=== PATIENT | female | born 1955 | race Caucasian/White ===

== ENCOUNTER → 2017-06-29 10:51 | Outpatient (CLI) | payer OTHER, BC, SELFPAY ==
[2017-06-25 14:36] VITALS: BP 138/81; BMI 32.0
[2017-06-29 11:12] LABS: Absolute Lymphocyte Count 1.29 X10^3/ul (0.83-4.51); Absolute Neutrophil Count 2.5 X10^3/uL (2.0-7.7); Basophil# 0.01 X10^3/uL; Basophil% 0.2 % (0-1); Eosinophils% 2.3 % (0-5); Hematocrit 39.3 % (37-47); Hemoglobin 13.4 g/dl (12.0-15.0); Lymphocyte # 1.29 X10^3/ul (4.0); Lymphocyte % 29.3 % (19-41); Mean Corp Hgb Conc 34.1 g/gl (32-36); Mean Corpuscular Hgb 28.7 pg (27.0-32.0); Mean Corpuscular Volume 84.2 fL (81-99); Mean Platelet Vol. 12.5 fl (6.2-12.0); Monocyte# 0.52 X10^3/uL; Monocyte% 11.8 % (0-10); Neutrophil # 2.48 X10^3/uL (2.7-7.7); Neutrophil % 56.2 % (47-70); POSITIVE COUNT NO; POSITIVE DIFFERENTIAL NO; POSITIVE MORPHOLOGY NO; Platelet Count 79 K/mm3 (150-450); RBC Distribution Width CV 13.3 % (11.6-14.6); RBC Distribution Width SD 40.7 fl (35.1-43.9); Red Blood Count 4.67 M/mm3 (4.2-5.4); White Blood Count 4.4 K/mm3 (4.4-11.0)
[2017-06-29 11:31] LABS: AST(SGOT) 34 U/L (15-37); Alanine Aminotransfer ALT/SGPT 61 U/L (13-56); Albumin, Serum 3.9 g/dL (3.2-5.0); Alkaline Phosphatase 74 U/L (45-117); Anion Gap 10 (5-15); BUN 13 mg/dL (7-18); BUN/Creat Ratio 12.5 RATIO (10-20); Calcium,Total 8.9 mg/dL (8.5-10.1); Chloride 106 mmol/L (98-107); Creatinine, Serum 1.04 mg/dL (0.55-1.02); EST Glomerular Filtration Rate 57 mL/min (>60); Est Glom Filt Rate - Afr Amer 69 mL/min (>60); Globulin 3.9 g/dL (2.2-4.2); Glucose 101 mg/dL (74-106); Protein, Total 7.8 g/dL (6.4-8.2); Sodium Level 141 mmol/L (136-145)
== END ==
PROVIDERS: Family Provider Family Medicine; PCP Family Medicine; Visit Provider Internal Medicine Rheumatology
DX: L40.59 Other psoriatic arthropathy (principal); Z79.899 Other long term (current) drug therapy; L40.8 Other psoriasis; M15.9 Polyosteoarthritis, unspecified; K21.0 Gastro-esophageal reflux disease with esophagitis; K76.0 Fatty (change of) liver, not elsewhere classified; I10 Essential (primary) hypertension; H34.231 Retinal artery branch occlusion, right eye; H43.812 Vitreous degeneration, left eye
CPT/HCPCS: 36415; 80053; 85025

== ENCOUNTER → 2017-07-04 15:00 | Outpatient (CLI) | payer OTHER, BC, SELFPAY ==
[2017-06-25 14:36] VITALS: BP 138/81; BMI 32.0
--- NOTE | 2017-07-04 15:00 | MASS_PTH ---
PATIENT: MEENU YOUNG LOC: [facility] U#:[id number] AGE/SX: 69/F ROOM: RE07/04/[address]: Dr. Darren Snider MD : 1955 BED: DIS: SPEC #: [id number] RECD: 07/04/17 19:24 STATUS: YANIQUE CARLOTA #: [id number] JERRY: 07/04/17 15:[address]: Darren Snider DEPT: SURGICAL PATHOLOGY RECD BY: Jake Ceballos ENTERED: 07/05/17 12:03 SP TYPE: Mass OTHR DR: Dr. Efe Moore MD Tissues: Left axillary region Procedures: Surgery Specimen Level IV HEADER OPERATION: Excision left axillary mass PRE-OP DIAGNOSIS: Left axillary mass TISSUE SUBMITTED: Left axillary tissue MICROSCOPIC DIAGNOSIS Left axillary mass, biopsy: Mature adipose tissue with early fat necrosis. AM:esther 07/08/17 COMMENT The lesion may represent a lipoma. Clinical correlation is suggested. MICROSCOPIC DESCRIPTION Slides are reviewed. GROSS DESCRIPTION Received in fixative is one container labeled with the patient's name and designated left axillary mass. The specimen consists of an ovoid fragment of yellow fatty tissue measuring 4 x 3 x 1.5 cm. Sections reveal homogenous yellow cut surfaces without cyst formation, necrosis or myxoid change. Final Tester sections are submitted in one cassette. / AM:esther 07/05/17 TC:1 CPT: 26339
== END ==
PROVIDERS: Family Provider Family Medicine; PCP Family Medicine; Visit Provider Surgery
DX: R22.2 Localized swelling, mass and lump, trunk (principal)
CPT/HCPCS: 88305

== ENCOUNTER → 2017-08-12 16:19 | Outpatient (CLI) | payer OTHER, BC, SELFPAY ==
--- NOTE | 2017-08-12 16:25 | HPBI_ITS ---
MAMMOGRAPHY - BILATERAL SCREENING REASON FOR EXAM: Female, 61 years old. Routine annual screening examination. PERTINENT HISTORY: Non-contributory. TECHNIQUE: Digital bilateral breast armand (3D mammographic acquisition) in the CC and MLO projections. 2-D mediolateral oblique (MLO) and craniocaudad (CC) views of both breasts were obtained. CAD: Full Field Digital Mammography with Computer Added Detection was performed. COMPARISON: Comparison is made with prior examination dated December 17, 2007. FINDINGS: Breast Composition: There are scattered areas of fibroglandular density. There are no dominant masses or suspicious calcifications. No other significant abnormalities are identified. There has been no significant change since the prior study. HPBI/SCREENING MAMM (CAD), BILAT IMPRESSION: Stable bilateral screening mammogram. Yearly follow-up mammogram recommended. (A) ASSESSMENT CATEGORY: BIRADS Category 1: Negative. A letter regarding these results will be sent to the patient by the facility within 30 days. Approximately 10% of breast cancers are not detected by mammography. A normal mammogram should not delay biopsy of a clinically suspicious abnormality. [id number] Electronically Signed: Dago Solis MD at 8:16 EDT Tel [phone], Service support ,
== END ==
PROVIDERS: Family Provider Family Medicine; PCP Family Medicine; Visit Provider Surgery
DX: Z12.31 Encounter for screening mammogram for malignant neoplasm of breast (principal)
CPT/HCPCS: 77063; 77067

== ENCOUNTER → 2017-10-26 07:44 | Outpatient (CLI) | payer OTHER, BC, SELFPAY ==
[2017-10-26 08:28] LABS: Absolute Lymphocyte Count 1.24 X10^3/ul (0.83-4.51); Absolute Neutrophil Count 2.2 X10^3/uL (2.0-7.7); Basophil# 0.01 X10^3/uL; Basophil% 0.3 % (0-1); Eosinophil# 0.12 X10^3/uL; Hemoglobin 13.4 g/dl (12.0-15.0); Lymphocyte # 1.24 X10^3/ul (4.0); Mean Corp Hgb Conc 33.5 g/gl (32-36); Mean Corpuscular Volume 83.5 fL (81-99); Mean Platelet Vol. 12.5 fl (6.2-12.0); Monocyte# 0.44 X10^3/uL; Neutrophil # 2.17 X10^3/uL (2.7-7.7); Neutrophil % 54.2 % (47-70); Platelet Count 84 K/mm3 (150-450); RBC Distribution Width CV 13.8 % (11.6-14.6); RBC Distribution Width SD 41.8 fl (35.1-43.9); Red Blood Count 4.79 M/mm3 (4.2-5.4)
[2017-10-26 08:31] LABS: POSITIVE COUNT NO; POSITIVE DIFFERENTIAL NO; POSITIVE MORPHOLOGY NO
[2017-10-26 08:59] LABS: AST(SGOT) 32 U/L (15-37); Alanine Aminotransfer ALT/SGPT 56 U/L (13-56); Albumin, Serum 3.9 g/dL (3.2-5.0); Alkaline Phosphatase 85 U/L (45-117); Anion Gap 7 (5-15); BUN 24 mg/dL (7-18); BUN/Creat Ratio 31.6 RATIO (10-20); Calcium,Total 8.6 mg/dL (8.5-10.1); Chloride 108 mmol/L (98-107); Cholesterol 171 mg/dL (200); Creatinine, Serum 0.76 mg/dL (0.55-1.02); EST Glomerular Filtration Rate 82 mL/min (>60); Est Glom Filt Rate - Afr Amer 100 mL/min (>60); Globulin 3.8 g/dL (2.2-4.2); Glucose 114 mg/dL (74-106); High Density Lipoprotein 41 mg/dL; Potassium 4.1 mmol/L (3.5-5.1); Protein, Total 7.7 g/dL (6.4-8.2); Sodium Level 138 mmol/L (136-145); T4 Total, Thyroxin 10.2 ug/dL (4.8-13.9); Thyroid Stim Hormone (TSH) 1.23 uIU/mL (0.358-3.74); Triglycerides 147 mg/dL; Very Low Density Lipoprotein 29 mg/dL (5-40)
== END ==
PROVIDERS: Family Provider Family Medicine; PCP Family Medicine; Visit Provider Family Medicine
DX: R53.83 Other fatigue (principal); E78.5 Hyperlipidemia, unspecified; L40.59 Other psoriatic arthropathy; Z79.899 Other long term (current) drug therapy; L40.8 Other psoriasis; M15.9 Polyosteoarthritis, unspecified; K21.0 Gastro-esophageal reflux disease with esophagitis; K76.0 Fatty (change of) liver, not elsewhere classified; I10 Essential (primary) hypertension; H34.231 Retinal artery branch occlusion, right eye; H43.812 Vitreous degeneration, left eye
CPT/HCPCS: 36415; 80053; 80061; 84436; 84443; 85025

== ENCOUNTER → 2017-12-27 08:04 | Outpatient (CLI) | payer OTHER, SELFPAY ==
[2017-12-27 09:10] LABS: Absolute Lymphocyte Count 1.05 X10^3/ul (0.83-4.51); Absolute Neutrophil Count 2.4 X10^3/uL (2.0-7.7); Basophil# 0.01 X10^3/uL; Basophil% 0.2 % (0-1); Eosinophil# 0.13 X10^3/uL; Eosinophils% 3.2 % (0-5); Lymphocyte # 1.05 X10^3/ul (4.0); Lymphocyte % 25.7 % (19-41); Mean Corp Hgb Conc 33.3 g/gl (32-36); Mean Corpuscular Hgb 28.8 pg (27.0-32.0); Mean Corpuscular Volume 86.3 fL (81-99); Mean Platelet Vol. 12.9 fl (6.2-12.0); Monocyte# 0.46 X10^3/uL; Monocyte% 11.2 % (0-10); Neutrophil # 2.43 X10^3/uL (2.7-7.7); Neutrophil % 59.5 % (47-70); Platelet Count 72 K/mm3 (150-450); RBC Distribution Width CV 14.1 % (11.6-14.6); Red Blood Count 4.52 M/mm3 (4.2-5.4); White Blood Count 4.1 K/mm3 (4.4-11.0)
[2017-12-27 09:11] LABS: POSITIVE COUNT NO; POSITIVE DIFFERENTIAL NO; POSITIVE MORPHOLOGY NO
[2017-12-27 09:41] LABS: ALB/GLOB Ratio 0.9 RATIO (0.9-2.4); AST(SGOT) 40 U/L (15-37); Alanine Aminotransfer ALT/SGPT 84 U/L (13-56); Albumin, Serum 3.7 g/dL (3.2-5.0); Alkaline Phosphatase 89 U/L (45-117); Anion Gap 9 (5-15); BUN 13 mg/dL (7-18); BUN/Creat Ratio 16.7 RATIO (10-20); Chloride 109 mmol/L (98-107); Creatinine, Serum 0.78 mg/dL (0.55-1.02); EST Glomerular Filtration Rate 80 mL/min (>60); Est Glom Filt Rate - Afr Amer 97 mL/min (>60); Globulin 3.9 g/dL (2.2-4.2); Glucose 136 mg/dL (74-106); Potassium 4.1 mmol/L (3.5-5.1); Protein, Total 7.6 g/dL (6.4-8.2); Sodium Level 143 mmol/L (136-145)
== END ==
PROVIDERS: Family Provider Family Medicine; PCP Family Medicine; Visit Provider Internal Medicine Rheumatology
DX: L40.59 Other psoriatic arthropathy (principal); Z79.899 Other long term (current) drug therapy; L40.8 Other psoriasis; K21.0 Gastro-esophageal reflux disease with esophagitis; K76.0 Fatty (change of) liver, not elsewhere classified; I10 Essential (primary) hypertension; H34.231 Retinal artery branch occlusion, right eye; H43.812 Vitreous degeneration, left eye
CPT/HCPCS: 36415; 80053; 85025

== ENCOUNTER → 2018-03-25 14:10 | Outpatient (CLI) | payer OTHER, SELFPAY ==
[2018-03-25 14:54] LABS: Absolute Lymphocyte Count 2.39 X10^3/ul (0.83-4.51); Basophil# 0.03 X10^3/uL; Basophil% 0.4 % (0-1); Eosinophil# 0.16 X10^3/uL; Eosinophils% 2.2 % (0-5); Hematocrit 40.9 % (37-47); Hemoglobin 13.9 g/dl (12.0-15.0); Lymphocyte # 2.39 X10^3/ul (4.0); Lymphocyte % 32.9 % (19-41); Mean Corpuscular Hgb 29.2 pg (27.0-32.0); Mean Corpuscular Volume 85.9 fL (81-99); Mean Platelet Vol. 12.7 fl (6.2-12.0); Monocyte# 0.67 X10^3/uL; Monocyte% 9.2 % (0-10); Platelet Count 107 K/mm3 (150-450); RBC Distribution Width CV 12.9 % (11.6-14.6); RBC Distribution Width SD 39.4 fl (35.1-43.9); Red Blood Count 4.76 M/mm3 (4.2-5.4); White Blood Count 7.3 K/mm3 (4.4-11.0)
[2018-03-25 14:57] LABS: POSITIVE COUNT NO; POSITIVE DIFFERENTIAL NO; POSITIVE MORPHOLOGY NO
[2018-03-25 15:18] LABS: ALB/GLOB Ratio 0.9 RATIO (0.9-2.4); AST(SGOT) 56 U/L (15-37); Alanine Aminotransfer ALT/SGPT 134 U/L (13-56); Albumin, Serum 3.8 g/dL (3.2-5.0); Alkaline Phosphatase 101 U/L (45-117); Anion Gap 7 (5-15); BUN 12 mg/dL (7-18); BUN/Creat Ratio 12.3 RATIO (10-20); Chloride 106 mmol/L (98-107); Creatinine, Serum 0.98 mg/dL (0.55-1.02); EST Glomerular Filtration Rate 61 mL/min (>60); Est Glom Filt Rate - Afr Amer 74 mL/min (>60); Globulin 4.1 g/dL (2.2-4.2); Glucose 127 mg/dL (74-106); Potassium 3.8 mmol/L (3.5-5.1); Protein, Total 7.9 g/dL (6.4-8.2); Sodium Level 138 mmol/L (136-145)
== END ==
PROVIDERS: Family Provider Family Medicine; PCP Family Medicine; Referring Provider Internal Medicine Rheumatology; Visit Provider Internal Medicine Rheumatology
DX: L40.59 Other psoriatic arthropathy (principal); Z79.899 Other long term (current) drug therapy; L40.8 Other psoriasis; K21.0 Gastro-esophageal reflux disease with esophagitis; K76.0 Fatty (change of) liver, not elsewhere classified; I10 Essential (primary) hypertension; H34.231 Retinal artery branch occlusion, right eye; H43.812 Vitreous degeneration, left eye
CPT/HCPCS: 36415; 80053; 85025

== ENCOUNTER → 2018-07-19 09:33 | Outpatient (CLI) | payer OTHER, BC, SELFPAY ==
[2018-07-19 10:20] LABS: Absolute Lymphocyte Count 1.75 X10^3/ul (0.83-4.51); Absolute Neutrophil Count 2.7 X10^3/uL (2.0-7.7); Basophil# 0.01 X10^3/uL; Basophil% 0.2 % (0-1); Eosinophil# 0.15 X10^3/uL; Eosinophils% 2.9 % (0-5); Hematocrit 42.8 % (37-47); Hemoglobin 13.9 g/dl (12.0-15.0); Lymphocyte # 1.75 X10^3/ul (4.0); Mean Corp Hgb Conc 32.5 g/gl (32-36); Mean Corpuscular Hgb 28.4 pg (27.0-32.0); Mean Corpuscular Volume 87.5 fL (81-99); Mean Platelet Vol. 12.9 fl (6.2-12.0); Monocyte# 0.48 X10^3/uL; Monocyte% 9.3 % (0-10); Neutrophil # 2.74 X10^3/uL (2.7-7.7); Neutrophil % 53.4 % (47-70); Platelet Count 85 K/mm3 (150-450); RBC Distribution Width CV 12.8 % (11.6-14.6); RBC Distribution Width SD 40.9 fl (35.1-43.9); Red Blood Count 4.89 M/mm3 (4.2-5.4); White Blood Count 5.1 K/mm3 (4.4-11.0)
[2018-07-19 10:21] LABS: POSITIVE COUNT NO; POSITIVE DIFFERENTIAL NO; POSITIVE MORPHOLOGY NO
[2018-07-19 10:49] LABS: BUN 12 mg/dL (7-18); Creatinine, Serum 0.76 mg/dL (0.55-1.02); Glucose 120 mg/dL (74-106)
[2018-07-19 10:50] LABS: AST(SGOT) 192 U/L (15-37); Alanine Aminotransfer ALT/SGPT 278 U/L (13-56); Albumin, Serum 3.8 g/dL (3.2-5.0); Alkaline Phosphatase 98 U/L (45-117); Anion Gap 7 (5-15); BUN/Creat Ratio 15.8 RATIO (10-20); Calcium,Total 8.7 mg/dL (8.5-10.1); Chloride 108 mmol/L (98-107); EST Glomerular Filtration Rate 82 mL/min (>60); Est Glom Filt Rate - Afr Amer 99 mL/min (>60); Globulin 3.9 g/dL (2.2-4.2); Potassium 4.3 mmol/L (3.5-5.1); Protein, Total 7.7 g/dL (6.4-8.2); Sodium Level 139 mmol/L (136-145)
[2018-07-19 10:53] LABS: Cholesterol 206 mg/dL (200); High Density Lipoprotein 41 mg/dL; Triglycerides 183 mg/dL; Very Low Density Lipoprotein 37 mg/dL (5-40)
[2018-07-21 10:35] LABS: Vitamin D,25 Hydroxy 21.6 ng/mL (29.95-100.01)
== END ==
PROVIDERS: Internal Medicine Rheumatology; Family Provider Family Medicine; PCP Family Medicine; Referring Provider Family Medicine; Visit Provider Family Medicine
DX: E78.5 Hyperlipidemia, unspecified (principal); E55.9 Vitamin D deficiency, unspecified; L40.59 Other psoriatic arthropathy; Z79.899 Other long term (current) drug therapy; L40.8 Other psoriasis; M15.9 Polyosteoarthritis, unspecified; K21.0 Gastro-esophageal reflux disease with esophagitis; K76.0 Fatty (change of) liver, not elsewhere classified; I10 Essential (primary) hypertension; H34.231 Retinal artery branch occlusion, right eye; H43.812 Vitreous degeneration, left eye
CPT/HCPCS: 36415; 80053; 80061; 82306; 85025

== ENCOUNTER → 2018-09-20 08:50 | Outpatient (CLI) | payer OTHER, BC, SELFPAY ==
[2018-09-20 09:42] LABS: Absolute Lymphocyte Count 1.59 X10^3/ul (0.83-4.51); Absolute Neutrophil Count 2.5 X10^3/uL (2.0-7.7); Basophil# 0.01 X10^3/uL; Basophil% 0.2 % (0-1); Eosinophil# 0.17 X10^3/uL; Eosinophils% 3.6 % (0-5); Hematocrit 40.5 % (37-47); Hemoglobin 13.5 g/dl (12.0-15.0); Lymphocyte # 1.59 X10^3/ul (4.0); Lymphocyte % 33.8 % (19-41); Mean Corp Hgb Conc 33.3 g/gl (32-36); Mean Corpuscular Hgb 28.7 pg (27.0-32.0); Mean Platelet Vol. 12.9 fl (6.2-12.0); Monocyte# 0.46 X10^3/uL; Monocyte% 9.8 % (0-10); Neutrophil # 2.48 X10^3/uL (2.7-7.7); Neutrophil % 52.6 % (47-70); POSITIVE COUNT NO; POSITIVE DIFFERENTIAL NO; POSITIVE MORPHOLOGY NO; Platelet Count 98 K/mm3 (150-450); RBC Distribution Width CV 12.7 % (11.6-14.6); RBC Distribution Width SD 38.8 fl (35.1-43.9); Red Blood Count 4.71 M/mm3 (4.2-5.4); White Blood Count 4.7 K/mm3 (4.4-11.0)
[2018-09-20 09:57] LABS: AST(SGOT) 66 U/L (15-37); Alanine Aminotransfer ALT/SGPT 94 U/L (13-56); Albumin, Serum 3.9 g/dL (3.2-5.0); Alkaline Phosphatase 79 U/L (45-117); Anion Gap 6 (5-15); BUN 9 mg/dL (7-18); BUN/Creat Ratio 11.2 RATIO (10-20); Calcium,Total 8.9 mg/dL (8.5-10.1); Chloride 109 mmol/L (98-107); Creatinine, Serum 0.81 mg/dL (0.55-1.02); EST Glomerular Filtration Rate 77 mL/min (>60); Est Glom Filt Rate - Afr Amer 93 mL/min (>60); Globulin 3.9 g/dL (2.2-4.2); Glucose 110 mg/dL (74-106); Potassium 4.6 mmol/L (3.5-5.1); Protein, Total 7.8 g/dL (6.4-8.2); Sodium Level 140 mmol/L (136-145)
== END ==
PROVIDERS: Family Provider Family Medicine; PCP Family Medicine; Referring Provider Internal Medicine Rheumatology; Visit Provider Internal Medicine Rheumatology
DX: L40.59 Other psoriatic arthropathy (principal); Z79.899 Other long term (current) drug therapy; L40.8 Other psoriasis; M15.9 Polyosteoarthritis, unspecified
CPT/HCPCS: 36415; 80053; 85025

== ENCOUNTER → 2018-12-20 09:19 | Outpatient (CLI) | payer OTHER, BC, SELFPAY ==
[2018-12-20 09:54] LABS: Absolute Lymphocyte Count 1.52 X10^3/uL (0.83-4.51); Absolute Neutrophil Count 2.5 X10^3/uL (2.0-7.7); Basophil# 0.03 X10^3/uL; Basophil% 0.6 % (0-1); Eosinophil# 0.19 X10^3/uL; Eosinophils% 4.1 % (0-5); Hematocrit 39.4 % (37-47); Hemoglobin 13.3 g/dL (12.0-15.0); Lymphocyte # 1.52 X10^3/ul (4.0); Lymphocyte % 32.4 % (19-41); Mean Corp Hgb Conc 33.8 g/dL (32-36); Mean Corpuscular Hgb 29.8 pg (27.0-32.0); Mean Corpuscular Volume 88.1 fL (81-99); Mean Platelet Vol. 12.4 fl (6.2-12.0); Monocyte# 0.41 X10^3/uL; Monocyte% 8.7 % (0-10); NRBC Flagged by Analyzer 0 % (0-5); Neutrophil # 2.51 X10^3/uL (2.7-7.7); Neutrophil % 53.6 % (47-70); Platelet Count 96 K/mm3 (150-450); RBC Distribution Width CV 12.2 % (11.6-14.6); RBC Distribution Width SD 39.6 fl (35.1-43.9); Red Blood Count 4.47 M/mm3 (4.2-5.4); White Blood Count 4.7 K/mm3 (4.4-11.0)
[2018-12-20 10:15] LABS: ALB/GLOB Ratio 1.2 RATIO (0.9-2.4); AST(SGOT) 74 U/L (15-37); Alanine Aminotransfer ALT/SGPT 165 U/L (13-56); Albumin, Serum 3.8 g/dL (3.2-5.0); Alkaline Phosphatase 72 U/L (45-117); Anion Gap 9 (5-15); BUN 15 mg/dL (7-18); BUN/Creat Ratio 17.3 RATIO (10-20); Calcium,Total 8.7 mg/dL (8.5-10.1); Chloride 110 mmol/L (98-107); Cholesterol 169 mg/dL (200); Creatinine, Serum 0.87 mg/dL (0.55-1.02); EST Glomerular Filtration Rate 70 mL/min (>60); Est Glom Filt Rate - Afr Amer 85 mL/min (>60); Globulin 3.3 g/dL (2.2-4.2); Glucose 117 mg/dL (74-106); High Density Lipoprotein 43 mg/dL; Potassium 4.2 mmol/L (3.5-5.1); Protein, Total 7.1 g/dL (6.4-8.2); Sodium Level 144 mmol/L (136-145); Triglycerides 115 mg/dL; Very Low Density Lipoprotein 23 mg/dL (5-40)
== END ==
PROVIDERS: Family Provider Family Medicine; PCP Family Medicine; Referring Provider Internal Medicine Rheumatology; Visit Provider Internal Medicine Rheumatology
DX: L40.59 Other psoriatic arthropathy (principal); Z79.899 Other long term (current) drug therapy; L40.8 Other psoriasis; M15.9 Polyosteoarthritis, unspecified; K21.0 Gastro-esophageal reflux disease with esophagitis; K76.0 Fatty (change of) liver, not elsewhere classified; I10 Essential (primary) hypertension; H34.231 Retinal artery branch occlusion, right eye; H43.812 Vitreous degeneration, left eye
CPT/HCPCS: 36415; 80053; 80061; 85025

== ENCOUNTER → 2019-06-17 07:51 | Outpatient (CLI) | payer OTHER, SELFPAY ==
[2019-06-17 08:26] LABS: Absolute Lymphocyte Count 1.83 X10^3/uL (0.83-4.51); Absolute Neutrophil Count 3.1 X10^3/uL (2.0-7.7); Basophil# 0.03 X10^3/uL; Basophil% 0.5 % (0-1); Eosinophils% 3.6 % (0-5); Hematocrit 41.6 % (37-47); Hemoglobin 13.7 g/dL (12.0-15.0); Lymphocyte # 1.83 X10^3/ul (4.0); Lymphocyte % 33.1 % (19-41); Mean Corp Hgb Conc 32.9 g/dL (32-36); Mean Corpuscular Volume 88.1 fL (81-99); Mean Platelet Vol. 11.9 fl (6.2-12.0); Monocyte# 0.34 X10^3/uL; Monocyte% 6.1 % (0-10); NRBC Flagged by Analyzer 0 % (0-5); Neutrophil # 3.09 X10^3/uL (2.7-7.7); Platelet Count 116 K/mm3 (150-450); RBC Distribution Width CV 12.2 % (11.6-14.6); RBC Distribution Width SD 39.5 fl (35.1-43.9); Red Blood Count 4.72 M/mm3 (4.2-5.4); White Blood Count 5.5 K/mm3 (4.4-11.0)
[2019-06-17 08:42] LABS: ALB/GLOB Ratio 1.1 RATIO (0.9-2.4); AST(SGOT) 39 U/L (15-37); Alanine Aminotransfer ALT/SGPT 96 U/L (13-56); Albumin, Serum 3.9 g/dL (3.2-5.0); Alkaline Phosphatase 71 U/L (45-117); Anion Gap 5 (5-15); BUN 15 mg/dL (7-18); BUN/Creat Ratio 14.4 RATIO (10-20); Calcium,Total 9.4 mg/dL (8.5-10.1); Chloride 107 mmol/L (98-107); Creatinine, Serum 1.04 mg/dL (0.55-1.02); EST Glomerular Filtration Rate 57 mL/min (>60); Est Glom Filt Rate - Afr Amer 69 mL/min (>60); Globulin 3.7 g/dL (2.2-4.2); Glucose 167 mg/dL (74-106); Potassium 3.9 mmol/L (3.5-5.1); Protein, Total 7.6 g/dL (6.4-8.2); Sodium Level 140 mmol/L (136-145)
== END ==
PROVIDERS: PCP Family Medicine; Referring Provider Internal Medicine Rheumatology; Visit Provider Internal Medicine Rheumatology
DX: L40.50 Arthropathic psoriasis, unspecified (principal); Z79.899 Other long term (current) drug therapy; L40.8 Other psoriasis; M15.9 Polyosteoarthritis, unspecified; K21.0 Gastro-esophageal reflux disease with esophagitis; K76.0 Fatty (change of) liver, not elsewhere classified; I10 Essential (primary) hypertension; H34.231 Retinal artery branch occlusion, right eye; H43.812 Vitreous degeneration, left eye
CPT/HCPCS: 36415; 80053; 85025

== ENCOUNTER → 2019-06-24 08:13 | Outpatient (CLI) | payer OTHER, SELFPAY ==
--- NOTE | 2019-06-24 08:22 | RAD_ITS ---
HISTORY: Increasing right hip pain posteriorly. Exam is AP pelvis and 2 views of the right hip. Comparison imaging of the right hip and pelvis is from October 22, 2012. Findings: Tubal ligation clips persists. Multiple enthesophytes persists. Both femoral heads are seated well within the respective acetabula. There is some joint space narrowing. No significant hip osteophytes. No soft tissue mass is perceived. Bowel gas pattern the pelvis is normal. RAD/HIP, UNI W/ Pelvis 2-3 Views IMPRESSION: No evidence of hip fracture or dislocation. Some joint space narrowing that is symmetric on both left and right hips. at 2320 Reported and signed by: Parminder Rivera MD Electronically Signed: Parminder Rivera MD at 23:19 EST Tel , Service support ,
== END ==
PROVIDERS: PCP Family Medicine; Referring Provider Internal Medicine Rheumatology; Visit Provider Internal Medicine Rheumatology
DX: L40.59 Other psoriatic arthropathy (principal); Z79.899 Other long term (current) drug therapy; L40.8 Other psoriasis; M15.9 Polyosteoarthritis, unspecified; K76.0 Fatty (change of) liver, not elsewhere classified; K21.0 Gastro-esophageal reflux disease with esophagitis; I10 Essential (primary) hypertension; H34.231 Retinal artery branch occlusion, right eye; H43.812 Vitreous degeneration, left eye
CPT/HCPCS: 73502

== ENCOUNTER → 2019-07-22 12:31 | Outpatient (CLI) | payer OTHER, SELFPAY ==
[2019-07-22 14:20] LABS: Anion Gap 5 (5-15); BUN 16 mg/dL (7-18); BUN/Creat Ratio 17.5 RATIO (10-20); Calcium,Total 9.6 mg/dL (8.5-10.1); Chloride 108 mmol/L (98-107); Creatinine, Serum 0.91 mg/dL (0.55-1.02); EST Glomerular Filtration Rate 66 mL/min (>60); Est Glom Filt Rate - Afr Amer 80 mL/min (>60); Glucose 86 mg/dL (74-106); Potassium 3.8 mmol/L (3.5-5.1); Sodium Level 140 mmol/L (136-145)
== END ==
PROVIDERS: Family Medicine; PCP Family Medicine; Referring Provider Family Medicine; Visit Provider Family Medicine
DX: R94.4 Abnormal results of kidney function studies (principal)
CPT/HCPCS: 36415; 80048

== ENCOUNTER → 2019-11-17 09:14 | Outpatient (CLI) | payer OTHER, SELFPAY ==
[2019-11-17 09:59] LABS: Hematocrit 43.4 % (37-47); Hemoglobin 14.2 g/dL (12.0-15.0); Mean Corp Hgb Conc 32.7 g/dL (32-36); Mean Corpuscular Hgb 29.7 pg (27.0-32.0); Mean Corpuscular Volume 90.8 fL (81-99); Mean Platelet Vol. 12.6 fl (6.2-12.0); POSITIVE COUNT YES; Platelet Count 94 K/mm3 (150-450); RBC Distribution Width SD 39.7 fl (35.1-43.9); Red Blood Count 4.78 M/mm3 (4.2-5.4); White Blood Count 5.4 K/mm3 (4.4-11.0)
[2019-11-17 10:04] LABS: Scan Indicated on CBC? Y/N YES- FLAGS NOTED
[2019-11-17 10:20] LABS: Differential Comment SCANNED
[2019-11-17 10:37] LABS: ALB/GLOB Ratio 1.3 RATIO (0.9-2.4); AST(SGOT) 60 U/L (15-37); Alanine Aminotransfer ALT/SGPT 134 U/L (13-56); Albumin, Serum 4.3 g/dL (3.2-5.0); Alkaline Phosphatase 80 U/L (45-117); Anion Gap 7 (5-15); BUN 18 mg/dL (7-18); BUN/Creat Ratio 20.7 RATIO (10-20); Calcium,Total 9.8 mg/dL (8.5-10.1); Chloride 106 mmol/L (98-107); Cholesterol 200 mg/dL (200); Creatinine, Serum 0.87 mg/dL (0.55-1.02); EST Glomerular Filtration Rate 70 mL/min (>60); Est Glom Filt Rate - Afr Amer 84 mL/min (>60); Globulin 3.2 g/dL (2.2-4.2); Glucose 113 mg/dL (74-106); High Density Lipoprotein 44 mg/dL; Potassium 4.8 mmol/L (3.5-5.1); Protein, Total 7.5 g/dL (6.4-8.2); Sodium Level 141 mmol/L (136-145); Triglycerides 155 mg/dL; Very Low Density Lipoprotein 31 mg/dL (5-40)
== END ==
PROVIDERS: PCP Family Medicine; Referring Provider Family Medicine; Visit Provider Family Medicine
DX: L40.59 Other psoriatic arthropathy (principal); Z79.899 Other long term (current) drug therapy; L40.8 Other psoriasis; K21.0 Gastro-esophageal reflux disease with esophagitis; K76.0 Fatty (change of) liver, not elsewhere classified; I10 Essential (primary) hypertension; H34.231 Retinal artery branch occlusion, right eye; H43.812 Vitreous degeneration, left eye
CPT/HCPCS: 36415; 80053; 80061; 85027

== ENCOUNTER → 2019-11-30 11:53 | Outpatient (CLI) | payer OTHER, SELFPAY ==
--- NOTE | 2019-11-30 11:57 | BI_ITS ---
MAMMOGRAPHY - BILATERAL SCREENING REASON FOR EXAM: Female, 64 years old. Routine annual screening examination. PERTINENT HISTORY: Non-contributory. TECHNIQUE: Digital bilateral breast leidy (3D mammographic acquisition) in the CC and MLO projections. 2-D mediolateral oblique (MLO) and craniocaudad (CC) views of both breasts were obtained. CAD: Full Field Digital Mammography with Computer Added Detection was performed. COMPARISON: Comparison is made with prior examination dated August 12, 2017. FINDINGS: Breast Composition: There are scattered areas of fibroglandular density. There are no dominant masses or suspicious calcifications. No other significant abnormalities are identified. There has been no significant change since the prior study. BI/SCREEN MAMM (CAD) W/LEIDY BILAT IMPRESSION: Stable bilateral screening mammogram. Yearly follow-up mammogram recommended. (A) ASSESSMENT CATEGORY: BIRADS Category 1: Negative. A letter regarding these results will be sent to the patient by the facility within 30 days. Approximately 10% of breast cancers are not detected by mammography. A normal mammogram should not delay biopsy of a clinically suspicious abnormality. [id number] Electronically Signed: Dago Solis, at 13:00 EDT , Service support ,
== END ==
PROVIDERS: PCP Family Medicine; Referring Provider Family Medicine; Visit Provider Family Medicine
DX: Z12.31 Encounter for screening mammogram for malignant neoplasm of breast (principal)
CPT/HCPCS: 77063; 77067

== ENCOUNTER → 2020-03-26 09:30 | Outpatient (CLI) | payer OTHER, SELFPAY ==
[2020-03-26 10:31] LABS: Absolute Lymphocyte Count 1.84 X10^3/uL (0.83-4.51); Absolute Neutrophil Count 2.8 X10^3/uL (2.0-7.7); Basophil# 0.03 X10^3/uL; Basophil% 0.6 % (0-1); Eosinophil# 0.16 X10^3/uL; Hemoglobin 14.3 g/dL (12.0-15.0); Lymphocyte # 1.84 X10^3/ul (4.0); Lymphocyte % 34.9 % (19-41); Mean Corp Hgb Conc 32.5 g/dL (32-36); Mean Corpuscular Hgb 28.7 pg (27.0-32.0); Mean Corpuscular Volume 88.4 fL (81-99); Mean Platelet Vol. 12.5 fl (6.2-12.0); Monocyte# 0.44 X10^3/uL; Monocyte% 8.3 % (0-10); NRBC Flagged by Analyzer 0 % (0-5); Neutrophil # 2.78 X10^3/uL (2.7-7.7); Neutrophil % 52.8 % (47-70); Platelet Count 135 K/mm3 (150-450); RBC Distribution Width CV 11.8 % (11.6-14.6); RBC Distribution Width SD 37.8 fl (35.1-43.9); Red Blood Count 4.98 M/mm3 (4.2-5.4); White Blood Count 5.3 K/mm3 (4.4-11.0)
[2020-03-26 10:46] LABS: AST(SGOT) 44 U/L (15-37); Alanine Aminotransfer ALT/SGPT 98 U/L (13-56); Albumin, Serum 3.8 g/dL (3.2-5.0); Alkaline Phosphatase 72 U/L (45-117); Anion Gap 4 (5-15); BUN 17 mg/dL (7-18); BUN/Creat Ratio 18.6 RATIO (10-20); Calcium,Total 9.4 mg/dL (8.5-10.1); Chloride 110 mmol/L (98-107); Creatinine, Serum 0.91 mg/dL (0.55-1.02); EST Glomerular Filtration Rate 66 mL/min (>60); Est Glom Filt Rate - Afr Amer 80 mL/min (>60); Globulin 3.7 g/dL (2.2-4.2); Glucose 135 mg/dL (74-106); Protein, Total 7.5 g/dL (6.4-8.2); Sodium Level 138 mmol/L (136-145)
[2020-03-26 10:50] LABS: Cholesterol 197 mg/dL (200); High Density Lipoprotein 49 mg/dL; Triglycerides 170 mg/dL; Very Low Density Lipoprotein 34 mg/dL (5-40)
[2020-03-28 08:18] LABS: Vitamin D,25 Hydroxy 37.5 ng/mL
== END ==
PROVIDERS: PCP Family Medicine; Referring Provider Internal Medicine Rheumatology; Visit Provider Internal Medicine Rheumatology
DX: L40.59 Other psoriatic arthropathy (principal); Z79.899 Other long term (current) drug therapy; L40.8 Other psoriasis; M15.9 Polyosteoarthritis, unspecified; K21.00 Gastro-esophageal reflux disease with esophagitis, without bleeding; K76.0 Fatty (change of) liver, not elsewhere classified; I10 Essential (primary) hypertension; H34.231 Retinal artery branch occlusion, right eye; H43.812 Vitreous degeneration, left eye
CPT/HCPCS: 36415; 80053; 80061; 82306; 83036; 85025

== ENCOUNTER → 2020-06-25 11:25 | Outpatient (CLI) | payer OTHER, SELFPAY ==
[2020-06-25 12:13] LABS: Absolute Lymphocyte Count 1.85 X10^3/uL (0.83-4.51); Absolute Neutrophil Count 3.5 X10^3/uL (2.0-7.7); Basophil# 0.02 X10^3/uL; Basophil% 0.3 % (0-1); Eosinophil# 0.26 X10^3/uL; Eosinophils% 4.2 % (0-5); Hemoglobin 14.1 g/dL (12.0-15.0); Lymphocyte # 1.85 X10^3/ul (4.0); Lymphocyte % 29.6 % (19-41); Mean Corp Hgb Conc 33.6 g/dL (32-36); Mean Corpuscular Hgb 29.1 pg (27.0-32.0); Mean Corpuscular Volume 86.6 fL (81-99); Monocyte# 0.63 X10^3/uL; Monocyte% 10.1 % (0-10); NRBC Flagged by Analyzer 0 % (0-5); Neutrophil # 3.47 X10^3/uL (2.7-7.7); Neutrophil % 55.3 % (47-70); Platelet Count 134 K/mm3 (150-450); RBC Distribution Width SD 37.9 fl (35.1-43.9); Red Blood Count 4.85 M/mm3 (4.2-5.4); White Blood Count 6.3 K/mm3 (4.4-11.0)
[2020-06-25 12:33] LABS: ALB/GLOB Ratio 1.1 RATIO (0.9-2.4); AST(SGOT) 103 U/L (15-37); Alanine Aminotransfer ALT/SGPT 185 U/L (13-56); Albumin, Serum 3.9 g/dL (3.2-5.0); Alkaline Phosphatase 78 U/L (45-117); Anion Gap 7 (5-15); BUN 16 mg/dL (7-18); BUN/Creat Ratio 16.7 RATIO (10-20); Calcium,Total 9.3 mg/dL (8.5-10.1); Chloride 109 mmol/L (98-107); Creatinine, Serum 0.96 mg/dL (0.55-1.02); EST Glomerular Filtration Rate 62 mL/min (>60); Est Glom Filt Rate - Afr Amer 75 mL/min (>60); Globulin 3.7 g/dL (2.2-4.2); Glucose 131 mg/dL (74-106); Potassium 3.9 mmol/L (3.5-5.1); Protein, Total 7.6 g/dL (6.4-8.2); Sodium Level 140 mmol/L (136-145)
== END ==
PROVIDERS: PCP Family Medicine; Referring Provider Internal Medicine Rheumatology; Visit Provider Internal Medicine Rheumatology
DX: L40.59 Other psoriatic arthropathy (principal); Z79.899 Other long term (current) drug therapy; L40.8 Other psoriasis; M15.9 Polyosteoarthritis, unspecified; K21.00 Gastro-esophageal reflux disease with esophagitis, without bleeding; K76.0 Fatty (change of) liver, not elsewhere classified; I10 Essential (primary) hypertension; H34.231 Retinal artery branch occlusion, right eye; H43.812 Vitreous degeneration, left eye
CPT/HCPCS: 36415; 80053; 85025

== ENCOUNTER → 2020-12-10 09:42 | Outpatient (CLI) | payer OTHER, SELFPAY ==
[2020-12-10 10:41] LABS: Absolute Lymphocyte Count 1.67 X10^3/uL (0.83-4.51); Absolute Neutrophil Count 2.7 X10^3/uL (2.0-7.7); Basophil# 0.02 X10^3/uL; Basophil% 0.4 % (0-1); Eosinophil# 0.19 X10^3/uL; Eosinophils% 3.7 % (0-5); Hematocrit 42.1 % (37-47); Hemoglobin 13.9 g/dL (12.0-15.0); Lymphocyte # 1.67 X10^3/ul (0.83-4.51); Lymphocyte % 32.8 % (19-41); Mean Corpuscular Hgb 29.1 pg (27.0-32.0); Mean Corpuscular Volume 88.3 fL (81-99); Mean Platelet Vol. 12.1 fl (6.2-12.0); Monocyte# 0.48 X10^3/uL; Monocyte% 9.4 % (0-10); NRBC Flagged by Analyzer 0 % (0-5); Neutrophil # 2.68 X10^3/uL (2.7-7.7); Neutrophil % 52.7 % (47-70); Platelet Count 131 K/mm3 (150-450); RBC Distribution Width CV 11.9 % (11.6-14.6); RBC Distribution Width SD 38.4 fl (35.1-43.9); Red Blood Count 4.77 M/mm3 (4.2-5.4); White Blood Count 5.1 K/mm3 (4.4-11.0)
[2020-12-10 11:03] LABS: Hemoglobin A1c 5.8 % (3.8-5.6)
[2020-12-10 11:05] LABS: Cholesterol 190 mg/dL (200); High Density Lipoprotein 45 mg/dL; Triglycerides 146 mg/dL; Very Low Density Lipoprotein 29 mg/dL (5-40)
[2020-12-10 11:09] LABS: ALB/GLOB Ratio 1.2 RATIO (0.9-2.4); AST(SGOT) 71 U/L (15-37); Alanine Aminotransfer ALT/SGPT 134 U/L (13-56); Alkaline Phosphatase 88 U/L (45-117); Anion Gap 6 (5-15); BUN 16 mg/dL (7-18); BUN/Creat Ratio 18.3 RATIO (10-20); Calcium,Total 9.3 mg/dL (8.5-10.1); Chloride 109 mmol/L (98-107); Creatinine, Serum 0.88 mg/dL (0.55-1.02); EST Glomerular Filtration Rate 69 mL/min (>60); Est Glom Filt Rate - Afr Amer 84 mL/min (>60); Globulin 3.4 g/dL (2.2-4.2); Glucose 120 mg/dL (74-106); Protein, Total 7.4 g/dL (6.4-8.2); Sodium Level 140 mmol/L (136-145)
== END ==
PROVIDERS: Internal Medicine Rheumatology; PCP Family Medicine; Referring Provider Family Medicine; Visit Provider Family Medicine
DX: I10 Essential (primary) hypertension (principal); R73.01 Impaired fasting glucose
CPT/HCPCS: 36415; 80053; 80061; 83036; 85025

== ENCOUNTER → 2021-02-22 16:50 | Outpatient (CLI) | payer OTHER, SELFPAY | PROVIDERS: PCP Family Medicine; Referring Provider Family Medicine; Visit Provider Family Medicine | DX: U07.1 COVID-19 (principal) | CPT/HCPCS: 87635; U0005; U0003 ==

== ENCOUNTER 2021-02-24 11:45 | Outpatient (CLI) | payer OTHER, SELFPAY ==
[2021-02-24 12:06] VITALS: BP 130/57; PULSE 73; RESP 16; TEMP 36.4; O2SAT 99; BMI 31.4
[2021-02-24] MEDS: 0.9% Saline Lock 10 ML Syringe IV (12:10)
[2021-02-24 12:40] VITALS: BP 119/63; PULSE 69; RESP 16; TEMP 36.8; O2SAT 98
[2021-02-24 13:42] VITALS: BP 123/65; PULSE 68; RESP 16; TEMP 36.8; O2SAT 99
== END 2021-02-24 13:43 | disposition home or self-care (01) ==
LOC: MS3OUT 11:45 → MS3 11:46
PROVIDERS: PCP Family Medicine; Referring Provider Nurse Practitioner Adult Health; Visit Provider Nurse Practitioner Adult Health
DX: Z23 Encounter for immunization (principal); U07.1 COVID-19
CPT/HCPCS: J7050; M0243; A4216; Q0244

== ENCOUNTER 2021-06-16 16:00 | Outpatient (CLI) | payer OTHER, SELFPAY ==
[2021-06-16 16:24] LABS: Absolute Lymphocyte Count 2.46 X10^3/uL (0.83-4.51); Absolute Neutrophil Count 3.5 X10^3/uL (2.0-7.7); Basophil# 0.03 X10^3/uL; Basophil% 0.4 % (0-1); Eosinophil# 0.22 X10^3/uL; Eosinophils% 3.2 % (0-5); Hemoglobin 14.3 g/dL (12.0-15.0); Lymphocyte # 2.46 X10^3/ul (0.83-4.51); Lymphocyte % 35.7 % (19-41); Mean Corp Hgb Conc 33.3 g/dL (32-36); Mean Corpuscular Hgb 29.2 pg (27.0-32.0); Mean Corpuscular Volume 87.8 fL (81-99); Mean Platelet Vol. 11.5 fl (6.2-12.0); Monocyte% 8.7 % (0-10); NRBC Flagged by Analyzer 0 % (0-5); Neutrophil # 3.54 X10^3/uL (2.7-7.7); Neutrophil % 51.3 % (47-70); Platelet Count 119 K/mm3 (150-450); RBC Distribution Width CV 12.1 % (11.6-14.6); RBC Distribution Width SD 38.9 fl (35.1-43.9); White Blood Count 6.9 K/mm3 (4.4-11.0)
[2021-06-16 16:54] LABS: AST(SGOT) 89 U/L (15-37); Alanine Aminotransfer ALT/SGPT 189 U/L (13-56); Albumin, Serum 3.9 g/dL (3.2-5.0); Alkaline Phosphatase 95 U/L (45-117); Anion Gap 6 (5-15); BUN 13 mg/dL (7-18); BUN/Creat Ratio 16.7 RATIO (10-20); Chloride 108 mmol/L (98-107); Creatinine, Serum 0.78 mg/dL (0.55-1.02); EST Glomerular Filtration Rate 79 mL/min (>60); Est Glom Filt Rate - Afr Amer 96 mL/min (>60); Globulin 3.8 g/dL (2.2-4.2); Glucose 124 mg/dL (74-106); Potassium 3.8 mmol/L (3.5-5.1); Protein, Total 7.7 g/dL (6.4-8.2); Sodium Level 138 mmol/L (136-145)
== END 2021-06-16 23:59 | disposition short-term general hospital (02) ==
LOC: LAB 16:03
PROVIDERS: PCP Family Medicine; Visit Provider Internal Medicine Rheumatology
DX: L40.59 Other psoriatic arthropathy (principal); L40.8 Other psoriasis; M15.9 Polyosteoarthritis, unspecified; K21.00 Gastro-esophageal reflux disease with esophagitis, without bleeding; K76.0 Fatty (change of) liver, not elsewhere classified; I10 Essential (primary) hypertension; H34.231 Retinal artery branch occlusion, right eye; H43.812 Vitreous degeneration, left eye; Z79.899 Other long term (current) drug therapy
CPT/HCPCS: 36415; 80053; 85025

== ENCOUNTER 2021-06-23 15:53 | Outpatient (CLI) | payer OTHER, SELFPAY ==
--- NOTE | 2021-06-23 15:59 | RAD_ITS ---
STUDY: X-RAY - CERVICAL SPINE REASON FOR EXAM: Female, 65 years old. CERVICAL SPINE PAIN TECHNIQUE: XR Spine Cervical 4 or 5 Views COMPARISON: None FINDINGS: Normal anterior atlantoaxial articulation. The odontoid process is obscured by the overlying hard palate on the open mouth view. Therefore, it is not fully evaluated by plain film. There is straightening of the normal cervical lordosis. There is multi-level endplate spondylosis. There is multi-level degenerative disc disease with multilevel disc space narrowing. There is multi-level osseous foraminal stenosis. The soft tissue structures are unremarkable. RAD/Cerv Spine 4 or 5 Views IMPRESSION: There are degenerative changes as noted above. The odontoid process is obscured by the overlying hard palate on the open mouth view. Therefore, it is not fully evaluated by plain film. Electronically Signed: Felipe Harvey MD at 19:02 EST ,
== END 2021-06-23 23:59 | disposition short-term general hospital (02) ==
LOC: MTRAD 15:57
PROVIDERS: PCP Family Medicine; Referring Provider Chiropractor; Visit Provider Chiropractor
DX: M54.6 Pain in thoracic spine (principal); M45.A Non-radiographic axial spondyloarthritis; M45.A4 Non-radiographic axial spondyloarthritis of thoracic region; M45.A6 Non-radiographic axial spondyloarthritis of lumbar region; M99.01 Segmental and somatic dysfunction of cervical region; M62.830 Muscle spasm of back; M99.03 Segmental and somatic dysfunction of lumbar region; M99.05 Segmental and somatic dysfunction of pelvic region
CPT/HCPCS: 72050

== ENCOUNTER → 2021-10-02 | Outpatient (CLI) | payer OTHER, SELFPAY ==
[2021-10-02 15:30] LABS: Absolute Lymphocyte Count 1.73 X10^3/uL (0.83-4.51); Absolute Neutrophil Count 2.6 X10^3/uL (2.0-7.7); Basophil# 0.03 X10^3/uL; Basophil% 0.6 % (0-1); Eosinophil# 0.18 X10^3/uL; Eosinophils% 3.6 % (0-5); Hematocrit 42.8 % (37-47); Hemoglobin 13.9 g/dL (12.0-15.0); Lymphocyte # 1.73 X10^3/ul (0.83-4.51); Lymphocyte % 34.2 % (19-41); Mean Corp Hgb Conc 32.5 g/dL (32-36); Mean Corpuscular Volume 89.4 fL (81-99); Mean Platelet Vol. 12.7 fl (6.2-12.0); Monocyte# 0.52 X10^3/uL; Monocyte% 10.3 % (0-10); NRBC Flagged by Analyzer 0 % (0-5); Neutrophil # 2.58 X10^3/uL (2.7-7.7); Neutrophil % 50.9 % (47-70); Platelet Count 125 K/mm3 (150-450); RBC Distribution Width CV 12.1 % (11.6-14.6); RBC Distribution Width SD 39.9 fl (35.1-43.9); Red Blood Count 4.79 M/mm3 (4.2-5.4); White Blood Count 5.1 K/mm3 (4.4-11.0)
[2021-10-02 15:46] LABS: Vitamin D,25 Hydroxy 47.8 ng/mL
[2021-10-02 15:57] LABS: ALB/GLOB Ratio 1.1 RATIO (0.9-2.4); AST(SGOT) 120 U/L (15-37); Alanine Aminotransfer ALT/SGPT 235 U/L (13-56); Albumin, Serum 3.9 g/dL (3.2-5.0); Alkaline Phosphatase 105 U/L (45-117); Anion Gap 7 (5-15); BUN 11 mg/dL (7-18); BUN/Creat Ratio 14.1 RATIO (10-20); Calcium,Total 9.8 mg/dL (8.5-10.1); Chloride 107 mmol/L (98-107); Cholesterol 208 mg/dL (200); Creatinine, Serum 0.78 mg/dL (0.55-1.02); EST Glomerular Filtration Rate 79 mL/min (>60); Est Glom Filt Rate - Afr Amer 96 mL/min (>60); Globulin 3.7 g/dL (2.2-4.2); Glucose 114 mg/dL (74-106); High Density Lipoprotein 43 mg/dL; Potassium 4.2 mmol/L (3.5-5.1); Protein, Total 7.6 g/dL (6.4-8.2); Sodium Level 139 mmol/L (136-145); Triglycerides 164 mg/dL; Very Low Density Lipoprotein 33 mg/dL (5-40)
[2021-10-02 16:30] LABS: Hemoglobin A1c 6.4 % (3.8-5.6)
== END | disposition home or self-care (01) ==
LOC: MFPLAB 10:06
PROVIDERS: PCP Family Medicine; Visit Provider Family Medicine
DX: E55.9 Vitamin D deficiency, unspecified (principal); E78.5 Hyperlipidemia, unspecified; R73.01 Impaired fasting glucose
CPT/HCPCS: 36415; 80053; 80061; 82306; 83036; 85025

== ENCOUNTER → 2021-12-09 | Outpatient (CLI) | payer OTHER, SELFPAY ==
[2021-12-09 10:10] LABS: Absolute Lymphocyte Count 1.47 X10^3/uL (0.83-4.51); Absolute Neutrophil Count 2.9 X10^3/uL (2.0-7.7); Basophil# 0.03 X10^3/uL; Basophil% 0.6 % (0-1); Eosinophil# 0.21 X10^3/uL; Eosinophils% 4.2 % (0-5); Hematocrit 41.9 % (37-47); Lymphocyte # 1.47 X10^3/ul (0.83-4.51); Lymphocyte % 29.2 % (19-41); Mean Corp Hgb Conc 33.4 g/dL (32-36); Mean Corpuscular Hgb 29.7 pg (27.0-32.0); Mean Corpuscular Volume 88.8 fL (81-99); Mean Platelet Vol. 12.3 fl (6.2-12.0); Monocyte# 0.43 X10^3/uL; Monocyte% 8.5 % (0-10); NRBC Flagged by Analyzer 0 % (0-5); Neutrophil # 2.87 X10^3/uL (2.7-7.7); Neutrophil % 56.9 % (47-70); Platelet Count 102 K/mm3 (150-450); RBC Distribution Width CV 11.9 % (11.6-14.6); RBC Distribution Width SD 38.7 fl (35.1-43.9); Red Blood Count 4.72 M/mm3 (4.2-5.4)
[2021-12-09 10:37] LABS: ALB/GLOB Ratio 0.9 RATIO (0.9-2.4); AST(SGOT) 128 U/L (15-37); Alanine Aminotransfer ALT/SGPT 235 U/L (13-56); Albumin, Serum 3.5 g/dL (3.2-5.0); Alkaline Phosphatase 100 U/L (45-117); Anion Gap 8 (5-15); BUN 9 mg/dL (7-18); BUN/Creat Ratio 10.9 RATIO (10-20); Calcium,Total 9.4 mg/dL (8.5-10.1); Chloride 108 mmol/L (98-107); Creatinine, Serum 0.82 mg/dL (0.55-1.02); EST Glomerular Filtration Rate 74 mL/min (>60); Est Glom Filt Rate - Afr Amer 89 mL/min (>60); Globulin 3.8 g/dL (2.2-4.2); Glucose 180 mg/dL (74-106); Potassium 4.2 mmol/L (3.5-5.1); Protein, Total 7.3 g/dL (6.4-8.2); Sodium Level 139 mmol/L (136-145)
== END | disposition home or self-care (01) ==
PROVIDERS: PCP Family Medicine; Referring Provider Internal Medicine Rheumatology; Visit Provider Internal Medicine Rheumatology
DX: L40.59 Other psoriatic arthropathy (principal); Z79.899 Other long term (current) drug therapy; L40.8 Other psoriasis; M15.9 Polyosteoarthritis, unspecified; K21.00 Gastro-esophageal reflux disease with esophagitis, without bleeding; K76.0 Fatty (change of) liver, not elsewhere classified; I10 Essential (primary) hypertension; H34.231 Retinal artery branch occlusion, right eye; H43.812 Vitreous degeneration, left eye
CPT/HCPCS: 36415; 80053; 85025

== ENCOUNTER → 2022-02-05 | Outpatient (CLI) | payer OTHER, SELFPAY ==
[2022-02-05 09:27] LABS: Bacteria 0 SEEN /hpf (None Seen); Mucous, Urine 0 SEEN /hpf (<or=2+); Red Blood Cells-Urine 0 SEEN /hpf (0-5)
[2022-02-05 10:01] LABS: Absolute Neutrophil Count 2.4 X10^3/uL (2.0-7.7); Basophil# 0.03 X10^3/uL; Basophil% 0.5 % (0-1); Eosinophils% 17.6 % (0-5); Hematocrit 42.6 % (37-47); Hemoglobin 14.3 g/dL (12.0-15.0); Lymphocyte % 31.7 % (19-41); Mean Corp Hgb Conc 33.6 g/dL (32-36); Mean Corpuscular Hgb 29.9 pg (27.0-32.0); Mean Corpuscular Volume 88.9 fL (81-99); Mean Platelet Vol. 11.4 fl (6.2-12.0); Monocyte# 0.39 X10^3/uL; Monocyte% 6.9 % (0-10); NRBC Flagged by Analyzer 0 % (0-5); Neutrophil # 2.43 X10^3/uL (2.7-7.7); Neutrophil % 42.9 % (47-70); Platelet Count 104 K/mm3 (150-450); RBC Distribution Width CV 12.1 % (11.6-14.6); RBC Distribution Width SD 39.2 fl (35.1-43.9); Red Blood Count 4.79 M/mm3 (4.2-5.4); White Blood Count 5.7 K/mm3 (4.4-11.0)
[2022-02-05 10:30] LABS: Vitamin D,25 Hydroxy 47.2 ng/mL
[2022-02-05 10:31] LABS: Hemoglobin A1c 6.3 % (3.8-5.6)
[2022-02-05 11:21] LABS: AST(SGOT) 111 U/L (15-37); Alanine Aminotransfer ALT/SGPT 188 U/L (13-56); Albumin, Serum 3.7 g/dL (3.2-5.0); Alkaline Phosphatase 95 U/L (45-117); Anion Gap 8 (5-15); BUN 13 mg/dL (7-18); BUN/Creat Ratio 19.8 RATIO (10-20); Calcium,Total 9.7 mg/dL (8.5-10.1); Chloride 108 mmol/L (98-107); Cholesterol 210 mg/dL (200); Creatinine, Serum 0.66 mg/dL (0.55-1.02); EST Glomerular Filtration Rate 96 mL/min (>60); Est Glom Filt Rate - Afr Amer 116 mL/min (>60); Globulin 3.8 g/dL (2.2-4.2); Glucose 115 mg/dL (74-106); High Density Lipoprotein 44 mg/dL; Potassium 4.2 mmol/L (3.5-5.1); Protein, Total 7.5 g/dL (6.4-8.2); Sodium Level 139 mmol/L (136-145); Triglycerides 185 mg/dL; Very Low Density Lipoprotein 37 mg/dL (5-40)
[2022-02-05 12:15] LABS: Color, Urine Yellow (Yellow); Glucose, Dipstick Normal (Normal); Ketone-Dipstick Negative (Negative); Leukocyte Esterase-Dipstick 25 /ul (Negative); Nitrite-Dipstick Negative (Negative); Occult Blood-Urine Negative /ul (Negative); Protein-Dipstick Negative (Negative); Urine Bilirubin Dipstick Negative (Negative); Urine Clarity Sl. Cloudy (Clear); Urine Urobilinogen Normal (Normal)
[2022-02-05 12:21] LABS: Squamous Epithelial Cells - UA 0-5 SEEN /hpf (5-10); White Blood Cells 0-5 SEEN /hpf (0-5)
== END | disposition home or self-care (01) ==
LOC: MFPLAB 09:24
PROVIDERS: PCP Family Medicine; Visit Provider Family Medicine
DX: E55.9 Vitamin D deficiency, unspecified (principal); I10 Essential (primary) hypertension; R73.01 Impaired fasting glucose
CPT/HCPCS: 36415; 80053; 80061; 81001; 82306; 83036; 84443; 85025

== ENCOUNTER → 2022-02-07 | Outpatient (CLI) | payer OTHER, SELFPAY ==
[2022-02-07 10:20] LABS: Ferritin 148 ng/mL (8-252); GGTP 37 U/L (5-55)
[2022-02-07 10:59] LABS: Hepatitis B Surface Antibody Non-Reactive; Hepatitis B Surface Antigen Non-Reactive (Nonreactive); Hepatitis C Antibody Non-Reactive (Nonreactive)
[2022-02-08 12:08] LABS: Anti-Centromere B Ab <0.2 AI (0.0-0.9); Anti-Chromatin <0.2 AI (0.0-0.9); Anti-Jo <0.2 AI (0.0-0.9); Anti-Scleroderma-70 AB <0.2 AI (0.0-0.9); RNP Ab 0.2 AI (0.0-0.9); SJOGREN'S Anti-SS-A test < 0.2 AI (0.0-0.9); SJOGREN'S Anti-SS-B test < 0.2 AI (0.0-0.9); Smith Ab 0.2 AI (0.0-0.9)
[2022-02-08 16:11] LABS: Alpha Antitrypsin Serum 161 mg/dL (101-187); Anti-dsDNA Ab 2 IU/mL (0-9)
[2022-02-10 07:40] LABS: Anti-Smooth Muscle ABS 22 Units (0-19); Copper, Serum or Plasma 80 ug/dL (80-158)
== END | disposition home or self-care (01) ==
LOC: MFPLAB 08:34
PROVIDERS: PCP Family Medicine; Referring Provider Family Medicine; Visit Provider Family Medicine
DX: R79.89 Other specified abnormal findings of blood chemistry (principal)
CPT/HCPCS: 36415; 82103; 82390; 82525; 82728; 82977; 83516; 86225; 86235; 86706; 86803; 87340

== ENCOUNTER → 2022-05-07 | Outpatient (CLI) | payer OTHER, SELFPAY ==
--- NOTE | 2022-05-07 07:50 | US_ITS ---
STUDY: ABDOMINAL ULTRASOUND - ELASTOGRAPHY REASON FOR VISIT: Female, 66 years old. Elevated liver function tests. TECHNIQUE: Liver stiffness measurements were obtained on a Patient Feed RS 85 ultrasound machine using a CA 1-7 probe following the SRU guidelines. 3 measurements were obtained using a 2-D-SWE method. The IQR/M was 22% suggesting a quality data set. TECHNICAL QUALITY: Adequate. COMPARISON: Comparison is made with prior study done earlier in the day. FINDINGS: Liver: Fatty infiltration of the liver. Median liver stiffness measured 9.4 kPa. US/Elastography Parenchyma/Organ IMPRESSION: Liver stiffness measures 9.4 kPa compatible with F2-F3 (Mild to moderate liver fibrosis) Metavir score. Electronically Signed: Dago Solis MD at 15:25 EST ,
--- NOTE | 2022-05-07 07:50 | US_ITS ---
STUDY: ABDOMINAL ULTRASOUND - RIGHT UPPER QUADRANT REASON FOR VISIT: Female, 66 years old elevated liver function tests. TECHNIQUE: Ultrasound evaluation of the right upper quadrant was performed with real-time and static garvey-scale imaging. TECHNICAL QUALITY: Adequate. COMPARISON: Comparison is made with prior study dated 11/17/2012. FINDINGS: Liver: The liver measures 16.4 cm. There is increased echogenicity consistent with fatty infiltration. The bile ducts are within normal limits. There is hepatic color flow. The direction of portal flow is hepatopetal. There is no demonstrated mass lesion. Gallbladder: Normal distended gallbladder. The gallbladder wall measures 1.8 mm. There is a negative sonographic Olson''s sign. There is no pericholecystic fluid. There are no gallstones. Common Bile Duct (C.B.D.): The common bile duct measures 3.3 mm. Pancreas: Normal size of the head, body and tail of the pancreas. There is increased echogenicity of the pancreas. There is no demonstrated pancreatic mass or cyst. Right Kidney: Normal size of the right kidney. The right kidney measures 11.4 cm x 4.9 cm x 3.7 cm. Normal renal cortex. The right cortex measures 1.3 cm. There is no demonstrated renal mass or cyst. There is no right hydronephrosis. US/Abdomen Limited IMPRESSION: Fatty infiltration of the liver. Electronically Signed: Dago Solis MD at 13:05 EST ,
== END | disposition home or self-care (01) ==
LOC: US 07:49
PROVIDERS: PCP Family Medicine; Visit Provider Internal Medicine Gastroenterology
DX: K76.0 Fatty (change of) liver, not elsewhere classified (principal); R79.89 Other specified abnormal findings of blood chemistry
CPT/HCPCS: 76705; 76981

== ENCOUNTER → 2022-05-16 | Outpatient (CLI) | payer OTHER, SELFPAY ==
[2022-05-16 08:05] LABS: Erythrocyte Sedimentation Rate 13 mm/hr (0-30)
[2022-05-16 08:08] LABS: Absolute Lymphocyte Count 1.89 X10^3/uL (0.83-4.51); Absolute Neutrophil Count 3.3 X10^3/uL (2.0-7.7); Basophil# 0.03 X10^3/uL; Basophil% 0.5 % (0-1); Eosinophil# 0.25 X10^3/uL; Eosinophils% 4.2 % (0-5); Hemoglobin 14.1 g/dL (12.0-15.0); Lymphocyte # 1.89 X10^3/ul (0.83-4.51); Lymphocyte % 31.6 % (19-41); Mean Corp Hgb Conc 33.6 g/dL (32-36); Mean Corpuscular Hgb 29.8 pg (27.0-32.0); Mean Corpuscular Volume 88.8 fL (81-99); Mean Platelet Vol. 11.8 fl (6.2-12.0); Monocyte% 8.4 % (0-10); NRBC Flagged by Analyzer 0 % (0-5); Neutrophil # 3.28 X10^3/uL (2.7-7.7); Neutrophil % 54.8 % (47-70); Platelet Count 102 K/mm3 (150-450); RBC Distribution Width CV 11.9 % (11.6-14.6); RBC Distribution Width SD 38.9 fl (35.1-43.9); Red Blood Count 4.73 M/mm3 (4.2-5.4)
[2022-05-16 08:24] LABS: ALB/GLOB Ratio 0.9 RATIO (0.9-2.4); AST(SGOT) 107 U/L (15-37); Alanine Aminotransfer ALT/SGPT 231 U/L (13-56); Albumin, Serum 3.5 g/dL (3.2-5.0); Alkaline Phosphatase 94 U/L (45-117); Anion Gap 6 (5-15); BUN 14 mg/dL (7-18); BUN/Creat Ratio 20.1 RATIO (10-20); CRP < 2.90 mg/L (0.0-3.0); Calcium,Total 9.2 mg/dL (8.5-10.1); Chloride 108 mmol/L (98-107); EST Glomerular Filtration Rate 90 mL/min (>60); Est Glom Filt Rate - Afr Amer 109 mL/min (>60); Globulin 3.9 g/dL (2.2-4.2); Glucose 130 mg/dL (74-106); LDH 197 U/L (84-246); Potassium 4.1 mmol/L (3.5-5.1); Protein, Total 7.4 g/dL (6.4-8.2); Sodium Level 139 mmol/L (136-145)
[2022-05-16 08:27] LABS: Ammonia < 10.0 umol/L (11-32)
[2022-05-16 08:30] LABS: International Normalized Ratio 1.1; Prothrombin Time (Protime)PT. 13.4 SECONDS (11.7-14.9)
[2022-05-16 08:32] LABS: CPK Total, Creatine Kinase 50 U/L (26-192); Cholesterol 217 mg/dL (200); Ferritin 173 ng/mL (8-252); High Density Lipoprotein 51 mg/dL; Magnesium 1.9 mg/dL (1.6-2.6); Thyroid Stim Hormone (TSH) 1.57 uIU/mL (0.358-3.74); Triglycerides 140 mg/dL; Very Low Density Lipoprotein 28 mg/dL (5-40)
[2022-05-16 08:42] LABS: Color, Urine Yellow (Yellow); Glucose, Dipstick Normal (Normal); Ketone-Dipstick Negative (Negative); Leukocyte Esterase-Dipstick 500 /ul (Negative); Nitrite-Dipstick Negative (Negative); Occult Blood-Urine 10 /ul (Negative); Protein-Dipstick 15 mg/dl (Negative); Specific Gravity, Urine 1.025 (1.002-1.030); Urine Bilirubin Dipstick Negative (Negative); Urine Clarity Clear (Clear); Urine Urobilinogen Normal (Normal)
[2022-05-16 08:46] LABS: Hemoglobin A1c 6.3 % (3.8-5.6)
[2022-05-16 08:50] LABS: Microalbumin,Random Urine 34.6 mg/L (NO RANGE EST.); Microalbumin:Creatinine Ratio 25.6 mg/g CRE (<30 mg/g CRE)
[2022-05-16 08:58] LABS: White Blood Cells 10-25 SEEN /hpf (0-5)
[2022-05-16 08:59] LABS: Red Blood Cells-Urine 0-5 SEEN /hpf (0-5)
[2022-05-16 09:04] LABS: Squamous Epithelial Cells - UA 0-5 SEEN /hpf (5-10)
[2022-05-16 09:05] LABS: Bacteria 2+ /hpf (None Seen); Mucous, Urine RARE /hpf (<or=2+)
[2022-05-16 09:16] LABS: HIV - WCH Non-Reactive (Nonreactive)
[2022-05-16 09:23] LABS: Vitamin B12 > 2000 pg/mL (211-911); Vitamin D,25 Hydroxy 47.5 ng/mL
[2022-05-17 17:10] LABS: Anti-Mitochondrial AB <20.0 Units (0.0-20.0)
[2022-05-19 20:16] LABS: Vitamin B1, Thiamine 102.8 nmol/L (66.5-200.0)
[2022-05-23 03:07] LABS: Angiotensin Convert Enzyme 41 U/L (14-82); Ceruloplasmin 15.7 mg/dL (19.0-39.0); Cytoplasmic Ab (C-ANCA) <1:20 titer (Neg:<1:20); Endomysial Antibody IgA Negative (Negative); Haptoglobin 89 mg/dL (37-355); Immunoglobulin A 237 mg/dL (87-352)
[2022-05-23 12:30] LABS: AFP, Tumor Marker 3.3 ng/mL (0.0-9.2); Aldolase 15.6 U/L (3.3-10.3); Copper, Serum or Plasma 73 ug/dL (80-158); Perinuclear Ab (P-ANCA) <1:20 titer (Neg:<1:20); t-Transglutaminase IgA <2 U/mL (0-3)
== END | disposition home or self-care (01) ==
PROVIDERS: PCP Family Medicine; Referring Provider Internal Medicine Gastroenterology; Visit Provider Internal Medicine Gastroenterology
DX: R79.89 Other specified abnormal findings of blood chemistry (principal); E55.9 Vitamin D deficiency, unspecified; E53.9 Vitamin B deficiency, unspecified; I10 Essential (primary) hypertension; R25.2 Cramp and spasm; E78.5 Hyperlipidemia, unspecified
CPT/HCPCS: 36415; 80053; 80061; 81001; 82043; 82085; 82105; 82140; 82164; 82306; 82390; 82525; 82550; 82570; 82607; 82728; 82784; 83010; 83036; 83516; 83615; 83735; 84425; 84443; 85025; 85610; 85652; 86140; 86255; 86256; 86703

== ENCOUNTER → 2022-06-19 | Outpatient (CLI) | payer OTHER, SELFPAY ==
[2022-06-19 08:53] LABS: Basophil# 0.04 X10^3/uL; Basophil% 0.7 % (0-1); Eosinophil# 0.23 X10^3/uL; Eosinophils% 4.3 % (0-5); Hematocrit 42.1 % (37-47); Lymphocyte % 29.6 % (19-41); Mean Corp Hgb Conc 33.3 g/dL (32-36); Mean Corpuscular Hgb 29.3 pg (27.0-32.0); Mean Corpuscular Volume 88.1 fL (81-99); Mean Platelet Vol. 11.8 fl (6.2-12.0); Monocyte# 0.47 X10^3/uL; Monocyte% 8.7 % (0-10); NRBC Flagged by Analyzer 0 % (0-5); Neutrophil # 3.03 X10^3/uL (2.7-7.7); Neutrophil % 56.1 % (47-70); Platelet Count 117 K/mm3 (150-450); RBC Distribution Width CV 12.2 % (11.6-14.6); Red Blood Count 4.78 M/mm3 (4.2-5.4); White Blood Count 5.4 K/mm3 (4.4-11.0)
[2022-06-19 09:46] LABS: ALB/GLOB Ratio 0.9 RATIO (0.9-2.4); AST(SGOT) 91 U/L (15-37); Alanine Aminotransfer ALT/SGPT 154 U/L (13-56); Albumin, Serum 3.6 g/dL (3.2-5.0); Alkaline Phosphatase 83 U/L (45-117); Anion Gap 10 (5-15); BUN 11 mg/dL (7-18); BUN/Creat Ratio 13.3 RATIO (10-20); Calcium,Total 9.6 mg/dL (8.5-10.1); Chloride 105 mmol/L (98-107); Creatinine, Serum 0.82 mg/dL (0.55-1.02); EST Glomerular Filtration Rate 74 mL/min (>60); Est Glom Filt Rate - Afr Amer 89 mL/min (>60); Glucose 171 mg/dL (74-106); Potassium 4.2 mmol/L (3.5-5.1); Protein, Total 7.6 g/dL (6.4-8.2); Sodium Level 139 mmol/L (136-145)
== END | disposition home or self-care (01) ==
LOC: LAB 08:11
PROVIDERS: PCP Family Medicine; Referring Provider Family Medicine; Visit Provider Family Medicine
DX: L40.59 Other psoriatic arthropathy (principal); Z79.899 Other long term (current) drug therapy; L40.8 Other psoriasis; M15.9 Polyosteoarthritis, unspecified; K21.00 Gastro-esophageal reflux disease with esophagitis, without bleeding; K76.0 Fatty (change of) liver, not elsewhere classified; I10 Essential (primary) hypertension; H34.231 Retinal artery branch occlusion, right eye; H43.812 Vitreous degeneration, left eye
CPT/HCPCS: 36415; 80053; 85025

== ENCOUNTER → 2022-07-23 | Outpatient (CLI) | payer OTHER, SELFPAY ==
[2022-07-23 15:24] LABS: Absolute Lymphocyte Count 2.47 X10^3/uL (0.83-4.51); Absolute Neutrophil Count 3.8 X10^3/uL (2.0-7.7); Basophil# 0.02 X10^3/uL; Basophil% 0.3 % (0-1); Eosinophil# 0.26 X10^3/uL; Eosinophils% 3.6 % (0-5); Hematocrit 42.5 % (37-47); Hemoglobin 14.3 g/dL (12.0-15.0); Lymphocyte # 2.47 X10^3/ul (0.83-4.51); Lymphocyte % 34.4 % (19-41); Mean Corp Hgb Conc 33.6 g/dL (32-36); Mean Corpuscular Hgb 29.7 pg (27.0-32.0); Mean Corpuscular Volume 88.2 fL (81-99); Mean Platelet Vol. 12.3 fl (6.2-12.0); Monocyte# 0.61 X10^3/uL; Monocyte% 8.5 % (0-10); NRBC Flagged by Analyzer 0 % (0-5); Neutrophil # 3.79 X10^3/uL (2.7-7.7); Neutrophil % 52.6 % (47-70); Platelet Count 126 K/mm3 (150-450); RBC Distribution Width CV 11.9 % (11.6-14.6); RBC Distribution Width SD 38.5 fl (35.1-43.9); Red Blood Count 4.82 M/mm3 (4.2-5.4); White Blood Count 7.2 K/mm3 (4.4-11.0)
[2022-07-23 16:15] LABS: AST(SGOT) 99 U/L (15-37); Alanine Aminotransfer ALT/SGPT 169 U/L (13-56); Albumin, Serum 3.9 g/dL (3.2-5.0); Alkaline Phosphatase 86 U/L (45-117); Anion Gap 9 (5-15); BUN 12 mg/dL (7-18); BUN/Creat Ratio 18.3 RATIO (10-20); Calcium,Total 9.9 mg/dL (8.5-10.1); Chloride 106 mmol/L (98-107); Creatinine, Serum 0.65 mg/dL (0.55-1.02); EST Glomerular Filtration Rate 96 mL/min (>60); Est Glom Filt Rate - Afr Amer 117 mL/min (>60); Glucose 103 mg/dL (74-106); Potassium 4.1 mmol/L (3.5-5.1); Protein, Total 7.9 g/dL (6.4-8.2); Sodium Level 140 mmol/L (136-145)
[2022-07-25 18:50] LABS: Aldolase 13.4 U/L (3.3-10.3); Anti-Smooth Muscle ABS 23 Units (0-19)
== END | disposition home or self-care (01) ==
LOC: LAB 14:33
PROVIDERS: PCP Family Medicine; Referring Provider Internal Medicine Gastroenterology; Visit Provider Internal Medicine Gastroenterology
DX: K76.9 Liver disease, unspecified (principal)
CPT/HCPCS: 36415; 80053; 82085; 83516; 85025

== ENCOUNTER → 2022-08-28 | Outpatient (CLI) | payer OTHER, SELFPAY ==
[2022-08-28] VITALS (9 sets, daily range): BP systolic 95–159; BP diastolic 54–117; PULSE 72–93; RESP 12–17; TEMP 36.7; O2SAT 93–99; BMI 33.4
--- NOTE | 2022-08-28 | LIV_PTH ---
PATIENT: MEENU YOUNG LOC: CT U#:[id number] AGE/SX: 66/F ROOM: RE08/28/[address]: Dr. Elias Marrero DO : 1955 BED: DIS: 08/28/2022 SPEC #: [id number] RECD: 08/28/22 10:03 STATUS: YANIQUE REGisell #: [id number] JERRY: 08/28/22 00:[address]: Elias Marrero DEPT: SURGICAL PATHOLOGY RECD BY: Ammon Navarro ENTERED: 08/28/22 10:03 SP TYPE: LIVER RES OTHR DR: Dr. Efe García MD Tissues: Liver, NOS Procedures: PAS with Diastase (control) Trichrome (control) Special Stain Group II PAS Stain (control) Surgery Specimen Level V Retic (control) Iron Stain (control) HEADER OPERATION: Liver, CT-guided core biopsy PRE-OP DIAGNOSIS: Liver disease TISSUE SUBMITTED: Liver 18-gauge x3 MICROSCOPIC DIAGNOSIS Liver, CT-guided core biopsy: Chronic hepatitis grade I and stage III. See microscopic description and comment. SJ:esther 08/29/2022 COMMENT The findings are compatible with clinical impression of autoimmune hepatitis; however, the portal area also shows ductopenia. Primary biliary cirrhosis cannot be entirely ruled out. Correlation with clinical, laboratory, radiologic findings and appropriate follow up are necessary. Case has been reviewed in consultation with Dr. Gibbs who concurs with the above diagnosis. IDC:JUAN LUIS MICROSCOPIC DESCRIPTION Slides are reviewed. The specimen shows liver parenchymal tissue with preserved lobular architecture. Hepatocytes show moderate macro- and microvesicular steatosis. Focal minimal lobular inflammation is noted and predominantly consists of lymphocytes. Portal area shows mild to moderate chronic inflammation and predominantly consists of lymphocytes with rare eosinophils. Lymphoid follicular formations are not seen. Portal area also shows focal ductopenia. Mild interface inflammation is also noted. Reticulin stain shows preserved hepatic architecture. Trichrome stain shows increased portal, periportal fibrosis and also focal bridging fibrosis. Obvious cirrhosis is not seen. Iron stain shows absent iron. PAS and PASD stains do not show any abnormal accumulation of protein. All stains are performed with appropriate matched controls. GROSS DESCRIPTION Received is one container labeled with the patient's name and not further designated. The specimen consists of three elongated fragments of irizarry soft tissue each measuring 1.9 cm in length and 0.1 cm in diameter. The specimen is totally submitted in one cassette. / SJ:esther 08/28/2022 TC:3 CPT: 24194, 36283 x5
--- NOTE | 2022-08-28 07:56 | CT_ITS ---
PROCEDURE: CT DIRECTED CORE LIVER BIOPSY INDICATION: Female, 66 years old. ? Autoimmune hepatitis PHYSICIAN: Dr. Will Gage CONSENT: Written informed consent was obtained having explained the risks, benefits and alternatives in detail with the patient who accepted the risks and agreed to proceed. Laboratory review and clinical assessment was performed. CONSCIOUS SEDATION PROTOCOL: The Drugs used were: 2 mg Versed, IV., and 50 mcg Fentanyl, IV. The sedation time was: 16 minutes. Conscious sedation was started at 8:52 AM and terminated at 9:08 AM. The conscious sedation protocol was independently monitored. RADIATION DOSAGE (If Supplied By Facility): CTDIvol = ( 20 ) mGy, DLP = ( 573.61 ) mGycm Individualized dose optimization techniques were used for this CT. TECHNIQUE: Using CT image guidance with image documentation, a suitable location in the left lobe of the liver was identified. Using an anterior approach, puncture of the liver was uneventful with an 18-gauge core needle system. 3, 18-gauge core samples were obtained, and submitted in formalin to the pathologist for further assessment. Followup CT scan revealed no distinct sequelae. CT/Biopsy/Inj or Needle Placement IMPRESSION: 1. CT directed core needle biopsy of the liver, using CT image guidance with image documentation as described. 2. Conscious Sedation protocol utilized with independent monitoring. Electronically Signed: Dago Solis MD at 10:58 EDT ,
[2022-08-28 07:59] LABS: Platelet Count 124 K/mm3 (150-450)
[2022-08-28 08:15] LABS: Partial Thromboplast Time 39.6 Seconds (24.1-36.2)
[2022-08-28] MEDS: Midazolam 2 MG/2 ML Syringe IV (08:51)
[2022-08-28] MEDS: fentaNYL 100 MCG/2 ML Ampul IV (08:52)
[2022-08-28] MEDS: Lidocaine 2% (20 ml mdv) 20 ML Vial INFILT (09:05)
== END | disposition home or self-care (01) ==
PROVIDERS: PCP Family Medicine; Referring Provider Internal Medicine Gastroenterology; Visit Provider Internal Medicine Gastroenterology
DX: Z01.818 Encounter for other preprocedural examination (principal); K76.9 Liver disease, unspecified
CPT/HCPCS: 47000; 36415; 77012; 85049; 85610; 85730; 88307; 88313; 99156; J7050; A4216

== ENCOUNTER → 2022-09-28 | Outpatient (CLI) | payer OTHER, SELFPAY ==
[2022-09-28 07:57] LABS: Absolute Lymphocyte Count 2.47 X10^3/uL (0.83-4.51); Absolute Neutrophil Count 4.6 X10^3/uL (2.0-7.7); Basophil# 0.06 X10^3/uL; Basophil% 0.7 % (0-1); Eosinophil# 0.27 X10^3/uL; Eosinophils% 3.3 % (0-5); Hematocrit 42.7 % (37-47); Lymphocyte # 2.47 X10^3/ul (0.83-4.51); Lymphocyte % 30.1 % (19-41); Mean Corp Hgb Conc 32.8 g/dL (32-36); Mean Corpuscular Hgb 29.5 pg (27.0-32.0); Mean Corpuscular Volume 90.1 fL (81-99); Mean Platelet Vol. 11.1 fl (6.2-12.0); Monocyte# 0.62 X10^3/uL; Monocyte% 7.6 % (0-10); NRBC Flagged by Analyzer 0 % (0-5); Neutrophil # 4.64 X10^3/uL (2.7-7.7); Neutrophil % 56.6 % (47-70); POSITIVE COUNT YES; Platelet Count 91 K/mm3 (150-450); RBC Distribution Width CV 12.7 % (11.6-14.6); RBC Distribution Width SD 41.5 fl (35.1-43.9); Red Blood Count 4.74 M/mm3 (4.2-5.4); White Blood Count 8.2 K/mm3 (4.4-11.0)
[2022-09-28 07:58] LABS: Differential Indicated SCAN CRITERIA MET
[2022-09-28 08:23] LABS: ALB/GLOB Ratio 0.9 RATIO (0.9-2.4); AST(SGOT) 40 U/L (15-37); Alanine Aminotransfer ALT/SGPT 87 U/L (13-56); Albumin, Serum 3.3 g/dL (3.2-5.0); Alkaline Phosphatase 73 U/L (45-117); Anion Gap 7 (5-15); BUN 14 mg/dL (7-18); BUN/Creat Ratio 18.9 RATIO (10-20); Calcium,Total 8.9 mg/dL (8.5-10.1); Chloride 107 mmol/L (98-107); Cholesterol 215 mg/dL (200); Creatinine, Serum 0.74 mg/dL (0.55-1.02); EST Glomerular Filtration Rate 83 mL/min (>60); Est Glom Filt Rate - Afr Amer 101 mL/min (>60); Globulin 3.5 g/dL (2.2-4.2); Glucose 128 mg/dL (74-106); High Density Lipoprotein 74 mg/dL; Potassium 3.8 mmol/L (3.5-5.1); Protein, Total 6.8 g/dL (6.4-8.2); Sodium Level 140 mmol/L (136-145); Triglycerides 156 mg/dL; Very Low Density Lipoprotein 31 mg/dL (5-40)
[2022-09-28 08:26] LABS: Vitamin D,25 Hydroxy 64.5 ng/mL
[2022-09-28 08:27] LABS: Hemoglobin A1c 6.5 % (3.8-5.6)
[2022-09-28 08:32] LABS: Bilirubin, Direct 0.21 mg/dL (0.00-0.30); LDH 179 U/L (84-246)
[2022-09-28 08:53] LABS: Differential Comment SCANNED; Platelet Estimate SLT DEC (ADEQ)
== END | disposition home or self-care (01) ==
LOC: LAB 07:31
PROVIDERS: Internal Medicine Gastroenterology; PCP Family Medicine; Referring Provider Family Medicine; Visit Provider Family Medicine
DX: K76.9 Liver disease, unspecified (principal); I10 Essential (primary) hypertension; R73.01 Impaired fasting glucose; E55.9 Vitamin D deficiency, unspecified
CPT/HCPCS: 36415; 80053; 80061; 82247; 82248; 82306; 83036; 83615; 85025

== ENCOUNTER → 2022-11-06 | Outpatient (CLI) | payer OTHER, SELFPAY ==
[2022-11-06 08:14] LABS: Absolute Lymphocyte Count 1.67 X10^3/uL (0.83-4.51); Absolute Neutrophil Count 3.5 X10^3/uL (2.0-7.7); Basophil# 0.05 X10^3/uL; Basophil% 0.8 % (0-1); Eosinophil# 0.18 X10^3/uL; Hematocrit 43.2 % (37-47); Hemoglobin 14.3 g/dL (12.0-15.0); Lymphocyte # 1.67 X10^3/ul (0.83-4.51); Lymphocyte % 27.6 % (19-41); Mean Corp Hgb Conc 33.1 g/dL (32-36); Mean Corpuscular Hgb 30.4 pg (27.0-32.0); Mean Corpuscular Volume 91.9 fL (81-99); Mean Platelet Vol. 12.2 fl (6.2-12.0); Monocyte# 0.59 X10^3/uL; Monocyte% 9.7 % (0-10); NRBC Flagged by Analyzer 0 % (0-5); Neutrophil # 3.52 X10^3/uL (2.7-7.7); Neutrophil % 58.1 % (47-70); POSITIVE COUNT YES; Platelet Count 96 K/mm3 (150-450); RBC Distribution Width CV 13.6 % (11.6-14.6); RBC Distribution Width SD 45.6 fl (35.1-43.9); White Blood Count 6.1 K/mm3 (4.4-11.0)
[2022-11-06 08:23] LABS: International Normalized Ratio 0.9; Prothrombin Time (Protime)PT. 12.2 SECONDS (11.7-14.9)
[2022-11-06 08:28] LABS: Erythrocyte Sedimentation Rate 12 mm/hr (0-30)
[2022-11-06 08:59] LABS: ALB/GLOB Ratio 1.1 RATIO (0.9-2.4); AST(SGOT) 29 U/L (15-37); Alanine Aminotransfer ALT/SGPT 56 U/L (13-56); Albumin, Serum 3.8 g/dL (3.2-5.0); Alkaline Phosphatase 75 U/L (45-117); Anion Gap 11 (5-15); BUN 12 mg/dL (7-18); BUN/Creat Ratio 14.4 RATIO (10-20); CRP < 2.90 mg/L (0.0-3.0); Calcium,Total 9.2 mg/dL (8.5-10.1); Chloride 107 mmol/L (98-107); Creatinine, Serum 0.83 mg/dL (0.55-1.02); EST Glomerular Filtration Rate 73 mL/min (>60); Est Glom Filt Rate - Afr Amer 88 mL/min (>60); Globulin 3.6 g/dL (2.2-4.2); Glucose 154 mg/dL (74-106); LDH 215 U/L (84-246); Potassium 3.7 mmol/L (3.5-5.1); Protein, Total 7.4 g/dL (6.4-8.2); Sodium Level 139 mmol/L (136-145)
[2022-11-09 08:12] LABS: Aldolase 6.6 U/L (3.3-10.3); Copper, Serum or Plasma 80 ug/dL (80-158)
== END | disposition home or self-care (01) ==
LOC: LAB 07:36
PROVIDERS: Internal Medicine Gastroenterology; PCP Family Medicine; Referring Provider Internal Medicine Rheumatology; Visit Provider Internal Medicine Rheumatology
DX: L40.59 Other psoriatic arthropathy (principal); Z79.899 Other long term (current) drug therapy; K76.9 Liver disease, unspecified
CPT/HCPCS: 36415; 80053; 82085; 82105; 82140; 82390; 82525; 83615; 85025; 85610; 85652; 86140

== ENCOUNTER → 2023-02-04 | Outpatient (CLI) | payer OTHER, SELFPAY ==
[2023-02-04 08:26] LABS: Bacteria 0 SEEN /hpf (None Seen); Mucous, Urine 0 SEEN /hpf (<or=2+)
[2023-02-04 10:24] LABS: Absolute Lymphocyte Count 1.27 X10^3/uL (0.83-4.51); Absolute Neutrophil Count 2.9 X10^3/uL (2.0-7.7); Basophil# 0.05 X10^3/uL; Eosinophil# 0.26 X10^3/uL; Eosinophils% 5.2 % (0-5); Hematocrit 43.2 % (37-47); Lymphocyte # 1.27 X10^3/ul (0.83-4.51); Lymphocyte % 25.2 % (19-41); Mean Corp Hgb Conc 32.4 g/dL (32-36); Mean Corpuscular Hgb 30.2 pg (27.0-32.0); Mean Corpuscular Volume 93.3 fL (81-99); Mean Platelet Vol. 12.3 fl (6.2-12.0); Monocyte# 0.51 X10^3/uL; Monocyte% 10.1 % (0-10); NRBC Flagged by Analyzer 0 % (0-5); Neutrophil # 2.92 X10^3/uL (2.7-7.7); Neutrophil % 57.9 % (47-70); Platelet Count 117 K/mm3 (150-450); RBC Distribution Width CV 11.9 % (11.6-14.6); RBC Distribution Width SD 40.8 fl (35.1-43.9); Red Blood Count 4.63 M/mm3 (4.2-5.4)
[2023-02-04 10:39] LABS: Vitamin D,25 Hydroxy 46.7 ng/mL
[2023-02-04 10:47] LABS: AST(SGOT) 86 U/L (15-37); Alanine Aminotransfer ALT/SGPT 137 U/L (13-56); Albumin, Serum 3.8 g/dL (3.2-5.0); Alkaline Phosphatase 78 U/L (45-117); Anion Gap 7 (5-15); BUN 12 mg/dL (7-18); BUN/Creat Ratio 16.4 RATIO (10-20); Calcium,Total 9.3 mg/dL (8.5-10.1); Chloride 107 mmol/L (98-107); Cholesterol 203 mg/dL (200); Creatinine, Serum 0.73 mg/dL (0.55-1.02); EST Glomerular Filtration Rate 85 mL/min (>60); Est Glom Filt Rate - Afr Amer 102 mL/min (>60); Globulin 3.7 g/dL (2.2-4.2); Glucose 122 mg/dL (74-106); High Density Lipoprotein 49 mg/dL; Potassium 4.1 mmol/L (3.5-5.1); Protein, Total 7.5 g/dL (6.4-8.2); Sodium Level 139 mmol/L (136-145); Triglycerides 181 mg/dL; Very Low Density Lipoprotein 36 mg/dL (5-40)
[2023-02-04 10:59] LABS: Glucose, Dipstick Normal (Normal); Ketone-Dipstick Negative (Negative); Leukocyte Esterase-Dipstick 500 /ul (Negative); Nitrite-Dipstick Negative (Negative); Occult Blood-Urine 10 /ul (Negative); Protein-Dipstick Negative (Negative); Specific Gravity, Urine 1.025 (1.002-1.030); Urine Bilirubin Dipstick Negative (Negative); Urine Urobilinogen Normal (Normal)
[2023-02-04 11:00] LABS: Color, Urine Yellow (Yellow); Urine Clarity Sl Cldy (Clear)
[2023-02-04 11:24] LABS: Red Blood Cells-Urine 0-5 SEEN /hpf (0-5); Squamous Epithelial Cells - UA 0-5 SEEN /hpf (5-10); Transitional Epithelial - Ur 0-5 SEEN /hpf (0-5); White Blood Cells 25-50 SEEN /hpf (0-5)
[2023-02-04 11:45] LABS: Hemoglobin A1c 6.1 % (3.8-5.6)
== END | disposition home or self-care (01) ==
LOC: MFPLAB 08:20
PROVIDERS: PCP Family Medicine; Visit Provider Family Medicine
DX: I10 Essential (primary) hypertension (principal); E55.9 Vitamin D deficiency, unspecified; R73.01 Impaired fasting glucose
CPT/HCPCS: 36415; 80053; 80061; 81001; 82306; 83036; 85025

== ENCOUNTER → 2023-03-18 | Outpatient (CLI) | payer OTHER, SELFPAY ==
[2023-03-18 16:22] LABS: Hemoglobin A1c 6.2 % (3.8-5.6)
[2023-03-18 16:26] LABS: ALB/GLOB Ratio 0.9 RATIO (0.9-2.4); AST(SGOT) 58 U/L (15-37); Alanine Aminotransfer ALT/SGPT 147 U/L (13-56); Albumin, Serum 3.5 g/dL (3.2-5.0); Alkaline Phosphatase 102 U/L (45-117); Anion Gap 5 (5-15); BUN 12 mg/dL (7-18); BUN/Creat Ratio 17.3 RATIO (10-20); CRP < 2.90 mg/L (0.0-3.0); Chloride 107 mmol/L (98-107); Creatinine, Serum 0.69 mg/dL (0.55-1.02); EST Glomerular Filtration Rate 90 mL/min (>60); Est Glom Filt Rate - Afr Amer 109 mL/min (>60); Globulin 3.7 g/dL (2.2-4.2); Glucose 175 mg/dL (74-106); Potassium 3.9 mmol/L (3.5-5.1); Protein, Total 7.2 g/dL (6.4-8.2); Sodium Level 136 mmol/L (136-145)
[2023-03-18 19:07] LABS: Absolute Lymphocyte Count 1.61 X10^3/uL (0.83-4.51); Absolute Neutrophil Count 5.6 X10^3/uL (2.0-7.7); Basophil# 0.04 X10^3/uL; Basophil% 0.5 % (0-1); Eosinophil# 0.19 X10^3/uL; Eosinophils% 2.4 % (0-5); Hematocrit 43.1 % (37-47); Lymphocyte # 1.61 X10^3/ul (0.83-4.51); Mean Corp Hgb Conc 32.5 g/dL (32-36); Mean Corpuscular Hgb 30.6 pg (27.0-32.0); Mean Corpuscular Volume 94.1 fL (81-99); Monocyte# 0.57 X10^3/uL; Monocyte% 7.1 % (0-10); NRBC Flagged by Analyzer 0 % (0-5); Neutrophil # 5.57 X10^3/uL (2.7-7.7); Neutrophil % 69.3 % (47-70); Platelet Count 161 K/mm3 (150-450); RBC Distribution Width CV 12.8 % (11.6-14.6); RBC Distribution Width SD 43.6 fl (35.1-43.9); Red Blood Count 4.58 M/mm3 (4.2-5.4)
[2023-03-19 00:38] LABS: Erythrocyte Sedimentation Rate 9 mm/hr (0-30)
[2023-03-29 05:07] LABS: Aldolase 11.4 U/L (3.3-10.3); Anti-Smooth Muscle ABS 23 Units (0-19); Ceruloplasmin 14.5 mg/dL (19.0-39.0); Copper, Serum or Plasma 70 ug/dL (80-158)
== END | disposition home or self-care (01) ==
LOC: LAB 14:44
PROVIDERS: PCP Family Medicine; Referring Provider Internal Medicine Gastroenterology; Visit Provider Internal Medicine Gastroenterology
DX: K76.9 Liver disease, unspecified (principal)
CPT/HCPCS: 36415; 80053; 82085; 82390; 82525; 83036; 83516; 85025; 85652; 86140

== ENCOUNTER → 2023-05-06 | Outpatient (CLI) | payer OTHER, SELFPAY ==
--- NOTE | 2023-05-06 07:38 | BI_ITS ---
MAMMOGRAPHY - BILATERAL SCREENING REASON FOR EXAM: Female, 67 years old. Routine annual screening examination. PERTINENT HISTORY: Non-contributory. TECHNIQUE: Digital bilateral breast armand (3D mammographic acquisition) in the CC and MLO projections. 2-D mediolateral oblique (MLO) and craniocaudad (CC) views of both breasts were obtained. CAD: Full Field Digital Mammography with Computer Added Detection was performed. COMPARISON: Comparison is made with prior study dated November 30, 2019 and August 12, 2017. FINDINGS: Breast Composition: There are scattered areas of fibroglandular density. There are no dominant masses or suspicious calcifications. Stable benign-appearing bilateral axillary lymph nodes. No other significant abnormalities are identified. There has been no significant change since the prior study. BI/SCREENING MAMM (CAD), BILAT IMPRESSION: Stable bilateral screening mammogram. Yearly follow-up mammogram recommended. (A) ASSESSMENT CATEGORY: BIRADS Category 2: Benign. A letter regarding these results will be sent to the patient by the facility within 30 days. Approximately 10% of breast cancers are not detected by mammography. A normal mammogram should not delay biopsy of a clinically suspicious abnormality. [id number] Electronically Signed: Dago Solis MD at 8:48 EST ,
== END | disposition home or self-care (01) ==
LOC: OPBI 07:38
PROVIDERS: PCP Family Medicine; Referring Provider Family Medicine; Visit Provider Family Medicine
DX: Z12.31 Encounter for screening mammogram for malignant neoplasm of breast (principal)
CPT/HCPCS: 77067

== ENCOUNTER → 2023-05-24 | Outpatient (CLI) | payer OTHER, SELFPAY ==
--- OUTSIDE RECORDS SUMMARY | 2023-05-24 14:10 | XMS RPT_ITS | CCD ---
Author Name Unknown Address [address] [place] [address] Organization [facility] Care Team Providers Care Straw Hat Brusher Name Role Phone MAURICIO BAHENA Attending Unavailable MARLY MCGINNIS Primary Care Unavailable Vellanki, Mauricio Admitting Unavailable Vellanki, Mauricio Attending Unavailable Vellanki, Mauricio Primary Care Unavailable Vellanki, Mauricio Admitting Unavailable Vellancarlitos, Mauricio Attending Unavailable Presley, Mauricio Primary Care Unavailable Marly Jordan Unavailable Unavailable FRIENDDO SAMSON Attending Unavailable Nacho Cervantes MD Unavailable Nuria Duff MD Unavailable NACHO CERVANTES Referring Unavailable NURIA DUFF Referring Unavailable NACHO CERVANTES Referring Unavailable NURIA DUFF Attending Unavailable NACHO CERVANTES Referring Unavailable NACHO CERVANTES Attending Unavailable CHAPIN MARRERO Referring Unavailable Allergies Allergy Classification Reported Allergen(s) Allergy Type Date of Onset Reaction(s) Facility (1 source) Povidone-Iodine; Translations: [povidone iodine topical] Drug Allergy [facility] Repository (6 sources) Iodine; Translations: [IODINE] Drug Allergy 06-08-2022 [facility] Medications Completed/Discontinued Medications Medication Drug Class(es) Dates Sig (Normalized) Sig (Original) cholecalciferol 0.05 mg oral capsule (5 sources) Vitamin D Start: 06-25-2017 take 1 capsule by mouth once daily Cholecalciferol, Vitamin D3, 50 mcg (2,000 unit) cap Take 4,000 Units by mouth once daily. 0 06/25/2017 Active Problems Problem Classification Problem Date Documented Date Episodic/Chronic Coagulation and hemorrhagic disorders (11 sources) Thrombocytopenic disorder; Translations: [Thrombocytopenia, unspecified] Onset: 06-10-2022 Chronic Deficiency and other anemia (1 source) Anemia, unspecified; Translations: [Anemia, unspecified type] Onset: 06-08-2022 Episodic Other liver diseases (1 source) Enzyme level - finding; Translations: [Transaminitis] Episodic Unclassified (1 source) Transaminitis; Translations: [Transaminitis] Onset: 08-24-2022 Results Test Name Value Interpretation Reference Range Facil ity Vital Signs Date Time Vital Sign Value Performing Clinician Faci lity 08-20-2022 10:31-0400 Body temperature 97.39 [degF] Nuria Duff MD Work Phone: [facility] 08-20-2022 10:31-0400 Body weight 83.23 kg Nuria Duff MD Work Phone: [facility] 08-20-2022 10:31-0400 Diastolic blood pressure 69 mm[Hg] Nuria Duff MD Work Phone: [facility] 08-20-2022 10:31-0400 Heart rate 70 /min Nuria Duff MD Work Phone: [facility] 08-20-2022 10:31-0400 Systolic blood pressure 125 mm[Hg] Nuria Duff MD Work Phone: [facility] 06-08-2022 10:01-0500 Body height 156 cm Nacho Cervantes MD Work Phone: [facility] 06-08-2022 10:01-0500 Body temperature 98.4 [degF] Nacho Cervantes MD Work Phone: [facility] 06-08-2022 10:01-0500 Body weight 82.78 kg Nacho Cervantes MD Work Phone: [facility] 06-08-2022 10:01-0500 Diastolic blood pressure 84 mm[Hg] Nacho Cervantes MD Work Phone: [facility] 06-08-2022 10:01-0500 Heart rate 77 /min Nacho Cervantes MD Work Phone: [facility] 06-08-2022 10:01-0500 SaO2% (BldA) [Mass fraction] 98 % Nacho Cervantes MD Work Phone: [facility] 06-08-2022 10:01-0500 Systolic blood pressure 148 mm[Hg] Nacho Cervantes MD Work Phone: [facility] Encounters Encounter Date Encounter Type Care Provider Facility Start: 08-24-2022 End: 08-25-2022 ambulatory NURIA DUFF Facility:[facility] Start: 08-20-2022 End: 08-20-2022 ambulatory NACHO CERVANTES Facility:[facility] Start: 08-20-2022 End: 08-20-2022 ambulatory Nuria Duff MD Work Phone: Hematology/Oncology Plan of Treatment Date Care Activity Detail Author Start: 09-10-2022 End: 11-10-2022 Cardiolipin IgG and IgM panel - Serum ANTI-CARDIOLIPIN AB Lab Routine Lupus anticoagulant disorder (HCC) Thrombocytopenia (HCC) Expected: 09/10/2022, Expires: 11/10/2022 [facility] Work Phone: Payers Date Payer Category Payer Unknown [id number] 2018 Unknown [id number] 2018 Unknown [id number] 2008 Unknown 1955 Unknown [id number] 1955 Unknown [id number] 1955 Unknown [id number] 1955 Unknown [id number] Social History Date Type Detail Facility Start: 06-08-2022 Tobacco smoking stat us CAIS Never smoked tobacco [facility] Start: 06-08-2022 Tobacco use and exposure Smoke less tobacco non-user [facility] Start: 06-08-2022 End: 08-20-2022 Alcohol intake Current drinker of alcohol (finding) [facility] Start: 06-08-2022 Alcohol Comment rare [facility] Start: 1955 Sex Assigned At Not on file C [facility] Progress note 08-20-2022 Note Date & Type Note Facility 08-20-2022 Note HNO ID: [id number] Author: Nuria Duff MD Service: ? Author Type: Physician Type: Progress Notes Filed: 08/20/2022 5:38 PM Note Text: SERVICE DATE: August 20, 2022 CHIEF COMPLAINT: Meenu White is a 66 year old female returning today for follow up of her thrombocytopenia INTERVAL HISTORY: Very pleasant 66-year-old white lady for hematologic surveillance on thrombocytopenia. It is mild and of no clinical significance thus far. She had 1 weakly positive IgM cardiolipin antibody and 1 indeterminate. She also had 1 positive lupus anticoagulant. She has mild to moderate transaminitis and is scheduled for liver biopsy in a couple of weeks Diagnostic Studies: Reviewed CURRENT MEDICATIONS: VITAMIN E ORAL Take 2 capsules by mouth once daily. metFORMIN (GLUCOPHAGE) 1,000 mg tablet Take 1,000 mg by mouth twice daily. losartan (COZAAR) 50 mg tablet Take 50 mg by mouth once daily. Cholecalciferol, Vitamin D3, 50 mcg (2,000 unit) cap Take 4,000 Units by mouth once daily. golimumab (SIMPONI ARIA INTRAVENOUS) Inject intravenously every 8 weeks. L.acidoph,plant-B.animal,long (PROBIOTIC PEARLS MAX POTENCY) 5 billion cell cpDR Take by mouth once daily. OTC PRODUCT 500 mg once daily. Tumeric psyllium husk (METAMUCIL ORAL) Take by mouth once daily. fluticasone propionate (FLONASE NASAL) Use in the nose as needed. ALLERGIES/INTOLERANCES: ALLERGIES Allergen Reactions Iodine Hives Topical Iodine per patient ROS: No bleeding including epistaxis or bleeding from the gums hemoptysis hematochezia melena hematemesis or hematuria Mild fatigue No flare ups of psoriatic skin lesions Arthralgias that seem to be better controlled with current treatment PHYSICAL EXAM: BP 125/69 Pulse 70 Temp 36.3 ?C (97.4 ?F) (Temporal) Wt 83.2 kg (183 lb 8 oz) BMI 34.2 kg/m2 Body mass index is 34.2 kg/m?. ECO No abnormalities on physical exam DATA REVIEW: I personally reviewed the patient's data and medical records. PERTINENT LABS: Reviewed PERTINENT IMAGING: Reviewed ASSESSMENT AND Plan Mild thrombocytopenia which is thus far of no clinical significance. To ensure stability we will check CBC every 6-month and see the patient in 12 months On the other hand we will do CBC and a day or 2 prior to her liver biopsy No indication for anticoagulants from the available data The patient was able to ask questions and these were answered in detail. Nuria Duff MD cc: Nacho Cervantes No primary care provider on file. [facility] History of Present illness Narrative 08-20-2022 Nuria Duff MD - 08/20/2022 5:34 PM EDT Note Date & Type Note Facility 08-20-2022 History of Presen t illness Narrative Images from the original note were not included. SERVICE DATE: August 20, 2022 CHIEF COMPLAINT: Meenu White is a 66 year old female returning today for follow up of her thrombocytopenia INTERVAL HISTORY: Very pleasant 66-year-old white lady for hematologic surveillance on thrombocytopenia. It is mild and of no clinical significance thus far. She had 1 weakly positive IgM cardiolipin antibody and 1 indeterminate. She also had 1 positive lupus anticoagulant. She has mild to moderate transaminitis and is scheduled for liver biopsy in a couple of weeks Diagnostic Studies: Reviewed CURRENT MEDICATIONS: VITAMIN E ORAL Take 2 capsules by mouth once daily. metFORMIN (GLUCOPHAGE) 1,000 mg tablet Take 1,000 mg by mouth twice daily. losartan (COZAAR) 50 mg tablet Take 50 mg by mouth once daily. Cholecalciferol, Vitamin D3, 50 mcg (2,000 unit) cap Take 4,000 Units by mouth once daily. golimumab (SIMPONI ARIA INTRAVENOUS) Inject intravenously every 8 weeks. L.acidoph,plant-B.animal,long (PROBIOTIC PEARLS MAX POTENCY) 5 billion cell cpDR Take by mouth once daily. OTC PRODUCT 500 mg once daily. Tumeric psyllium husk (METAMUCIL ORAL) Take by mouth once daily. fluticasone propionate (FLONASE NASAL) Use in the nose as needed. ALLERGIES/INTOLERANCES: ALLERGIES Allergen Reactions Iodine Hives Topical Iodine per patient ROS: No bleeding including epistaxis or bleeding from the gums hemoptysis hematochezia melena hematemesis or hematuria Mild fatigue No flare ups of psoriatic skin lesions Arthralgias that seem to be better controlled with current treatment PHYSICAL EXAM: BP 125/69 Pulse 70 Temp 36.3 C (97.4 F) (Temporal) Wt 83.2 kg (183 lb 8 oz) BMI 34.2 kg/m2 Body mass index is 34.2 kg/m . ECO No abnormalities on physical exam DATA REVIEW: I personally reviewed the patient's data and medical records. PERTINENT LABS: Reviewed PERTINENT IMAGING: Reviewed ASSESSMENT AND Plan Mild thrombocytopenia which is thus far of no clinical significance. To ensure stability we will check CBC every 6-month and see the patient in 12 months On the other hand we will do CBC and a day or 2 prior to her liver biopsy No indication for anticoagulants from the available data The patient was able to ask questions and these were answered in detail. Nuria Duff MD cc: Nacho Bowling primary care provider on file. documented in this encounter [facility] Note 08-10-2022 Telephone Encounter - Waleska New LPN - 08/10/2022 1:02 PM EDTTelephone Encounter - Ana Hawk - 08/10/2022 12:21 PM EDTTelephone Encounter - Nadja Lewis LPN - 08/10/2022 11:49 AM EDT Note Date & Type Note Facility 08-10-2022 Miscellaneous Notes Formattin g of this note might be different from the original. Platelets 114 08/06/2022. I faxed these results to Dr. Marrero. Patient is aware that this shouldn't be an issue but it is ultimately up to Dr. Marrero. Waleska New LPN Spoke with pt and rescheduled to 08/20. Pt asked to pass on a question to Dr.Ghany Teran has her Liver Biopsy scheduled for Saturday the . She was wondering, based on her platelet count, should she be concerned and should she proceed with Biopsy as scheduled Please contact pt and advise. Thank you! Yes, please reschedule for the following week. She needs to be totally asymptomatic before coming in. Nadja Lewis LPN PT TESTED POSITIVE ON 08/09. SHE HAS APPT ON 08/13 WONDERING IF SHE NEEDS TO R/S? PLEASE ADVISE. documented in this encounter [facility] Note 06-12-2022 Telephone Encounter - Nadja Lewis LPN - 06/12/2022 12:29 PM ESTTelephone Encounter - Nacho Cervantes MD - 06/12/2022 12:01 PM EST Note Date & Type Note Facility 06-12-2022 Miscellaneous Notes Formattin g of this note might be different from the original. Repeat CBC and anticardiolipin antibodies (IgG, IgM, IgA) and follow-up in 3 months. Nacho Cervantes MD She has a lupus anticoagulant and anticardiolipin antibody. See below. SIGNIFICANT FINDINGS: 1. Lupus anticoagulant: Positive 2. Anticardiolipin antibody: IgM Positive This may also explain her low platelet count. No treatment is needed at this time. She is aware of her risks for blood clots disorder. I spoke with Mrs. Meenu White on the phone today. Repeat CBC and anticardiolipin antibodies (IgG, IgM, IgA) and follow-up in 3 months. Nacho Cervantes MD documented in this encounter [facility] History and physical note 06-08-2022 Nacho Cervantes MD - 06/08/2022 10:45 AM EST Note Date & Type Note Facility 06-08-2022 History and physical note Hematology and Medical Oncology PATIENT NAME: Meenu White. CLINIC NO: [id number]. ATTENDING PHYSICIAN: Nacho Cervantes MD. DATE OF SERVICE:06/08/2022. DIAGNOSIS: Chronic thrombocytopenia Consultation requested by Dr. Marrero for an opinion regarding thrombocytopenia. My final recommendations will be communicated back to the requesting physician by way of shared Medical record or letter to requesting physician via US mail. PERFORMANCE STATUS:100% HPI: 66-year-old lady with history of psoriatic arthritis, hyperlipidemia, hypertension and borderline diabetes who presented with fatty liver disease. She has history of easy bleeding and bruising. Long history of mild thrombocytopenia, but her platelet was never below 100,000. She denies any alcohol use. She is not on aspirin or any blood thinner. She has been on anti-TNF alpha therapy for psoriatic arthritis for many year. She is currently on golimumab infusion through her slag mixer. She denies unusual rash. No history of hepatitis. She had no recent or past blood transfusion. No bleeding complications from previous surgery. She denied epistaxis, hematuria, or rectal bleeding. CBC last month showed a platelet count of 102,000, but normal WBC and no evidence of anemia. Her prothrombin time 13.4, and sed rate 13. Serum ferritin, vitamin B12 level were normal. HIV 1 and 2 screen were negative. Family history positive for autoimmune disease. No family history anemia or bleeding disorder. MEDICATIONS: Current Outpatient Medications Medication Sig metFORMIN (GLUCOPHAGE) 1,000 mg tablet Take 1,000 mg by mouth twice daily. losartan (COZAAR) 50 mg tablet Take 50 mg by mouth once daily. Cholecalciferol, Vitamin D3, 50 mcg (2,000 unit) cap Take 2,000 Units by mouth twice daily. golimumab (SIMPONI ARIA INTRAVENOUS) Inject intravenously every 8 weeks. L.acidoph,plant-B.animal,long (PROBIOTIC PEARLS MAX POTENCY) 5 billion cell cpDR Take by mouth once daily. OTC PRODUCT 500 mg once daily. Tumeric psyllium husk (METAMUCIL ORAL) Take by mouth once daily. fluticasone propionate (FLONASE NASAL) Use in the nose as needed. No current facility-administered medications for this visit. . ALLERGIES: ALLERGIES Allergen Reactions Iodine Hives Topical Iodine per patient . PAST MEDICAL HISTORY: PAST MEDICAL HISTORY Diagnosis Date Carpal tunnel syndrome Elevated LFTs Essential hypertension Hyperlipemia Impaired fasting glucose Muscle cramp Obesity Psoriatic arthritis (HCC) Steatohepatitis, non-alcoholic Thrombocytopenia (HCC) Vitamin B deficiency Vitamin D deficiency . PAST SURGICAL HISTORY: PAST SURGICAL HISTORY Procedure Laterality Date BUNIONECTOMY, LAPIDUS-TYPE Left BUNIONECTOMY, LAPIDUS-TYPE Right LIGATE FALLOPIAN TUBE SHOULDER SURGERY HX Right . FAMILY HISTORY: FAMILY HISTORY Problem Relation Age of Onset Arthritis Mother Hypertension Mother Stroke Mother Thyroid Mother Skin Cancer Mother Skin Cancer Father Hypertension Father Diabetes Father Arthritis Father Bipolar disorder Father Fibromyalgia Sister other (bladder cancer) Sister Fibromyalgia Sister Obesity Sister Bipolar disorder Brother other (cancer throat) Brother other (cancer tongue) Brother . SOCIAL HISTORY: Social History Tobacco Use Smoking status: Never Smokeless tobacco: Never Vaping Use Vaping Use: Never used Substance Use Topics Alcohol use: Yes Comment: rare Drug use: Never . REVIEW OF SYSTEMS: CONSTITUTIONAL: No fevers, chills, nightsweats, unintended weight loss HEENT: Denies frequent or severe heaches, nasal congestion/sinus symptoms, problematic allergy problems. EYES: No diplopia or blurry vision. CARDIOVASCULAR: No chest pain, dyspnea, palpitations, orthopnea, PND, ankle edema. PULM: No dyspnea, unexplained cough. GI: No dysphagia/odynophagia, problematic reflux, constipation, diarrhea, changes in stool habits, hematochezia, melena. : No new urinary complaints, including dysuria, gross hematuria or pyuria. NEURO: No new balance problems, peripheral weakness/paresthesias or numbness of concern. MUSC-SKEL: No new joint pain, swelling, or erythema. PSY: No concerns regarding depression, anxiety or panic. INTEGUMENTARY: No new skin changes (rash, new or changing mole, new growth) PHYSICAL EXAMINATION: BP 148/84 Pulse 77 Temp 98.4 Ht 5' 1.417 (1.56m) Wt 182 lb 8 oz (82.8kg) SpO2 98% BMI 34.02 kg/(m^2). HEENT: Head is normocephalic, atraumatic. Sclerae white, conjunctivae pink. PEERL. EOMs are intact. Oropharynx is benign. LYMPHATICS: There is no palpable adenopathy in the neck, supraclavicular region, axillae, or groin. LUNGS: Lungs are clear to percussion and auscultation. HEART: Heart is normal without murmurs, gallops, or rubs. ABDOMEN: Obese, soft and nontender with mild hepatomegaly. Spleen is nonpalpable. No masses or ascites can be palpated. EXTREMITIES: Are without edema. No petechia or ecchymosis. NEUROLOGIC: Exam is physiologic LABORATORY DATA: Component Latest Ref Rng & Units 06/08/2022 WBC 3.70 - 11.00 k/uL 6.61 RBC 3.90 - 5.20 m/uL 4.91 Hemoglobin 11.5 - 15.5 g/dL 14.4 Hematocrit 36.0 - 46.0 % 43.2 MCV 80.0 - 100.0 fL 88.0 MCH 26.0 - 34.0 pg 29.3 MCHC 30.5 - 36.0 g/dL 33.3 RDW-CV 11.5 - 15.0 % 11.9 Platelet Count 150 - 400 k/uL 129 (L) MPV 9.0 - 12.7 fL 11.5 Neut% % 58.6 Abs Neut (ANC) 1.45 - 7.50 k/uL 3.88 Lymph% % 26.5 Abs Lymph 1.00 - 4.00 k/uL 1.75 Queens% % 8.8 Abs Queens <0.87 k/uL 0.58 Eosin% % 4.1 Abs Eosin <0.46 k/uL 0.27 Baso% % 0.6 Abs Baso <0.11 k/uL 0.04 Immature Gran % % 1.4 IMMATURE GRANS (ABS) <0.10 k/uL 0.09 Component Latest Ref Rng & Units 06/08/2022 PT Sec <13.1 sec 9.4 PT INR 0.9 - 1.3 0.9 APTT 23.0 - 32.4 sec 29.8 Component Latest Ref Rng & Units 06/08/2022 Hep B Surface Ab, Qual Positive Negative (A) Hep B Surf Ab Quant >=12.00 mIU/mL <8.00 (L) Hep C Antibody IA Negative Negative Hep B Surface Ag Negative Negative Hep B Core Ab, Total Negative Negative ASSESSMENT: 66-year-old female with chronic thrombocytopenia and fatty liver disease. She also has a history of psoriatic arthritis and easy bleeding /bruising. Her CBC today is normal except for a platelet count 134,000. Mild thrombocytopenia could be related to fatty liver disease as well as from anti-TNF alpha treatment for psoriatic arthritis. PLAN: -Additional tests: Remote hepatitis serology, PT, PTT and lupus anticoagulant panel because of easy bleeding to rule - out coagulopathy. -MRI of the abdomen scheduled for later this month. -No further evaluation is needed if all her tests are normal. Avoid aspirin because of thrombocytopenia. -Age-appropriate cancer screening including colonoscopy is recommended. I spent 45 minutes in the visit, with more than 50% of the total [id number] time of the visit in counseling / coordination of care. The patient was allowed enough time to ask questions. All questions were answered to her satisfaction. Patient verbalized understanding of thrombocytopenia and agreed to follow-up with PCP. Nacho Cervantes MD. ELECTRONICALLY SIGNED Cc: Dr. Marly García documented in this encounter [facility] Evaluation note Note Date & Type Note Facility documented in this encounter [facility] Evaluation note Note Date & Type Note Facility documented in this encounter [facility] Evaluation note Note Date & Type Note Facility documented in this encounter [facility] Evaluation note Note Date & Type Note Facility documented in this encounter [facility] Summary Purpose Family History No Family History Records FoundNo Family History Records FoundNo Family History Records FoundNo Family History Records Found Advance Directives No Advanced Directives Records FoundNo Advanced Directives Records FoundNo Advanced Directives Records FoundNo Advanced Directives Records Found Additional Source Comments INFORMATION SOURCE (unrecogn ized section and content) DATE CREATED AUTHOR AUTHOR'S ORGANIZ ATION 08/30/[address] [facility] DATE CREATED AUTHOR AUTHOR'S ORGANIZ ATION 06/21/2022 [facility] DATE CREATED AUTHOR AUTHOR'S ORGANIZ ATION 08/29/2022 [facility] Source Comments (unrecognize d section and content) In the event this informatio n is protected by the Federal Confidentiality of Alcohol and Drug Abuse Patient Records regulations: The Federal rules restrict any use of the information to criminally investigate or prosecute any alcohol or drug abuse patient.[facility] the event this information is protected by the Federal Confidentiality of Alcohol and Drug Abuse Patient Records regulations: The Federal rules restrict any use of the information to criminally investigate or prosecute any alcohol or drug abuse patient.[facility] the event this information is protected by the Federal Confidentiality of Alcohol and Drug Abuse Patient Records regulations: The Federal rules restrict any use of the information to criminally investigate or prosecute any alcohol or drug abuse patient.[facility] the event this information is protected by the Federal Confidentiality of Alcohol and Drug Abuse Patient Records regulations: The Federal rules restrict any use of the information to criminally investigate or prosecute any alcohol or drug abuse patient.[facility] the event this information is protected by the Federal Confidentiality of Alcohol and Drug Abuse Patient Records regulations: The Federal rules restrict any use of the information to criminally investigate or prosecute any alcohol or drug abuse patient.[facility] Reason for Visit (unrecogniz ed section and content) Reason Comments Results Appointment Reason Comments Patient Question Reason Comments Established Patient Care Teams (unrecognized sec tion and content) Straw Hat Brusher Relationship Specialty Start Date End Date Maryl [place] , [place] 06/01/22 Straw Hat Brusher Relationship Specialty Start Date End Date Marly [place] , [place] 06/01/22 Nacho Cervantes MD [address] [place] [address] Hematology/Oncology 06/14/22 Straw Hat Brusher Relationship Specialty Start Date End Date PratibhaMarly otero , [place] 06/01/22 Nacho Cervantes MD [address] [place], [place] [address] [phone] Hematology/Oncology 06/14/22 Nuria Duff MD [address] [place] [address] Oncology 08/10/22 Straw Hat Brusher Relationship Specialty Start Date End Date PratibhaMarly otero , [place] 06/01/22 Nacho Cervantes MD [address] [place] [address] Hematology/Oncology 06/14/22 Nuria Duff MD [address] [place] [address] Oncology 08/10/22 FOR RECORDS PERTAINING TO PATIENTS WHO ARE OR HAVE BEEN ENROLLED IN A CHEMICAL DEPENDENCY/SUBSTANCEABUSE PROGRAM, SOME INFORMATION MAY BE OMITTED. This clinical summary was aggregated from multiple sources. Caution should be exercised in using it in the provision of clinical care. This summary normalizes information from multiple sources, and as a consequence, information in this document may materially change the coding, format and clinical context of patient data. In addition, data may be omitted in some cases. CLINICAL DECISIONS SHOULD BE BASED ON THE PRIMARY CLINICAL RECORDS. [facility], [facility]. provides no warranty or guarantee of the accuracy or completeness of information in this document.
[2023-05-24 14:27] LABS: Absolute Lymphocyte Count 1.58 X10^3/uL (0.83-4.51); Absolute Neutrophil Count 3.7 X10^3/uL (2.0-7.7); Basophil# 0.02 X10^3/uL; Basophil% 0.3 % (0-1); Eosinophil# 0.22 X10^3/uL; Eosinophils% 3.6 % (0-5); Hemoglobin 13.4 g/dL (12.0-15.0); Lymphocyte # 1.58 X10^3/ul (0.83-4.51); Lymphocyte % 26.2 % (19-41); Mean Corp Hgb Conc 32.7 g/dL (32-36); Mean Corpuscular Hgb 30.3 pg (27.0-32.0); Mean Corpuscular Volume 92.8 fL (81-99); Mean Platelet Vol. 11.7 fl (6.2-12.0); Monocyte# 0.55 X10^3/uL; Monocyte% 9.1 % (0-10); NRBC Flagged by Analyzer 0 % (0-5); Neutrophil # 3.66 X10^3/uL (2.7-7.7); Neutrophil % 60.6 % (47-70); Platelet Count 122 K/mm3 (150-450); RBC Distribution Width CV 12.6 % (11.6-14.6); RBC Distribution Width SD 42.7 fl (35.1-43.9); Red Blood Count 4.42 M/mm3 (4.2-5.4)
[2023-05-24 14:44] LABS: International Normalized Ratio 1.1; Prothrombin Time (Protime)PT. 13.7 SECONDS (11.7-14.9)
[2023-05-24 14:54] LABS: ALB/GLOB Ratio 1.1 RATIO (0.9-2.4); AST(SGOT) 30 U/L (15-37); Alanine Aminotransfer ALT/SGPT 49 U/L (13-56); Albumin, Serum 3.7 g/dL (3.2-5.0); Alkaline Phosphatase 70 U/L (45-117); Anion Gap 6 (5-15); BUN 9 mg/dL (7-18); BUN/Creat Ratio 12.9 RATIO (10-20); CRP < 2.90 mg/L (0.0-3.0); Calcium,Total 9.4 mg/dL (8.5-10.1); Chloride 106 mmol/L (98-107); Cholesterol 193 mg/dL (200); EST Glomerular Filtration Rate 89 mL/min (>60); Est Glom Filt Rate - Afr Amer 108 mL/min (>60); Ferritin 52 ng/mL (8-252); Globulin 3.5 g/dL (2.2-4.2); Glucose 108 mg/dL (74-106); High Density Lipoprotein 45 mg/dL; Iron 66 ug/dL (50-170); Iron Binding Capacity,Total 370 ug/dL (250-450); PERCENT IRON SATURATION 17.8 % (15.0-55.0); Potassium 3.5 mmol/L (3.5-5.1); Protein, Total 7.2 g/dL (6.4-8.2); Sodium Level 139 mmol/L (136-145); Triglycerides 205 mg/dL; Very Low Density Lipoprotein 41 mg/dL (5-40); Vitamin D,25 Hydroxy 56.3 ng/mL
[2023-05-24 15:00] LABS: Hemoglobin A1c 5.5 % (3.8-5.6)
[2023-05-28 12:07] LABS: AFP, Tumor Marker 3.4 ng/mL (0.0-9.2); Anti-Mitochondrial AB <20.0 Units (0.0-20.0); Anti-Smooth Muscle ABS 19 Units (0-19)
== END | disposition home or self-care (01) ==
PROVIDERS: PCP Family Medicine; Referring Provider Internal Medicine; Visit Provider Internal Medicine
DX: L40.59 Other psoriatic arthropathy (principal); D69.6 Thrombocytopenia, unspecified; Z79.899 Other long term (current) drug therapy; L40.8 Other psoriasis; M15.9 Polyosteoarthritis, unspecified; K21.01 Gastro-esophageal reflux disease with esophagitis, with bleeding; I10 Essential (primary) hypertension; H34.231 Retinal artery branch occlusion, right eye; H43.812 Vitreous degeneration, left eye; K76.9 Liver disease, unspecified
CPT/HCPCS: 36415; 80053; 80061; 82105; 82306; 82728; 83036; 83516; 83540; 83550; 85025; 85610; 86140

== ENCOUNTER → 2023-05-28 | Outpatient (CLI) | payer OTHER, SELFPAY ==
--- NOTE | 2023-05-28 15:11 | BD_ITS ---
STUDY: DUAL ENERGY X-RAY ABSORPTIOMETRY / DXA REASON FOR EXAM: Female, 67 years old. Z780 TECHNIQUE: Bone Mineral Density (BMD) measurements of lumbar spine and bilateral hips were obtained. COMPARISON: None. FINDINGS: Lumbar Spine (L1-L4): g/cm2 (0.984) / T-score (-0.6) / Z-score (1.3) Findings are suggestive of normal bone density with a low fracture risk. Left Femur Total: g/cm2 (0.871) / T-score (-0.6) / Z-score (0.7) Left Femoral Neck: g/cm2 (0.666) / T-score (-1.6) / Z-score (0.0) Right Femur Total: g/cm2 (0.827) / T-score (-0.9) / Z-score (0.4) Right Femoral Neck: g/cm2 (0.738) / T-score (-1.0) / Z-score (0.6) BD/Dexa Bone Density Study IMPRESSION: The patient is considered osteopenic as outlined below according to World Min Organization (WHO) criteria with a moderate fracture risk. Reference Information: The T-score is the number of standard deviations above or below the standard which is normal for young adults at their peak bone mineral density. The World Health Organization (WHO) interprets the T-scores as follows: Above -1 Normal bone density Between -1 and -2.5 Osteopenia Equal to / or below -2.5 Osteoporosis As a practical clinical guideline, osteopenia may be graded as follows: Mild -1 through -1.5 Moderate -1.6 through -2.0 Severe -2.1 through -2.4 The Z-score is the number of standard deviations above or below age-matched controls. A Z-score of less than -1.5 would be considered abnormal. References: 1. NIH Osteoporosis and Related Bone Diseases www osteo.org 2. International Society for Clinical Densitometry www iscd.org 3. National Osteoporosis Foundation www nof.org Electronically Signed: Dago Solis MD at 14:44 EST ,
--- OUTSIDE RECORDS SUMMARY | 2023-05-28 17:40 | XMS RPT_ITS | CCD ---
Author Name Unknown Address [address] [place] [address] Organization [facility] Care Team Providers Care Airplane Woodworker Name Role Phone MAURICIO BAHENA Attending Unavailable [...] Povidone-Iodine; Translations: [povidone iodine topical] Drug Allergy [facility] Repository (6 sources) Iodine; Translations: [IODINE] Drug Allergy 06-08-2022 [facility] Medications Completed/Discontinued Medications Medication Drug Class(es) Dates [...] 97.39 [degF] Nuria Duff MD Work Phone: [facility] 08-20-2022 10:31-0400 Body weight 83.23 kg Nuria Duff MD Work Phone: [facility] 08-20-2022 10:31-0400 Diastolic blood pressure 69 mm[Hg] Nuria Duff MD Work Phone: [facility] 08-20-2022 10:31-0400 Heart rate 70 /min Nuria Duff MD Work Phone: [facility] 08-20-2022 10:31-0400 Systolic blood pressure 125 mm[Hg] Nuria Duff MD Work Phone: [facility] 06-08-2022 10:01-0500 Body height 156 cm Nacho Cervantes MD Work Phone: [facility] 06-08-2022 10:01-0500 Body temperature 98.4 [degF] Nacho Cervantes MD Work Phone: [facility] 06-08-2022 10:01-0500 Body weight 82.78 kg Nacho Cervantes MD Work Phone: [facility] 06-08-2022 10:01-0500 Diastolic blood pressure 84 mm[Hg] Nacho Cervantes MD Work Phone: [facility] 06-08-2022 10:01-0500 Heart rate 77 /min Nacho Cervantes MD Work Phone: [facility] 06-08-2022 10:01-0500 SaO2% (BldA) [Mass fraction] 98 % Nacho Cervantes MD Work Phone: [facility] 06-08-2022 10:01-0500 Systolic blood pressure 148 mm[Hg] Nacho Cervantes MD Work Phone: [facility] Encounters Encounter Date Encounter Type Care Provider Facility Start: 08-24-2022 End: 08-25-2022 ambulatory NURIA DUFF Facility:[facility] Start: 08-20-2022 End: 08-20-2022 ambulatory NACHO CERVANTES Facility:[facility] Start: 08-20-2022 End: 08-20-2022 ambulatory Nuria Duff MD Work Phone: Hematology/Oncology Plan of Treatment Date Care Activity Detail Author Start: 09-10-2022 End: 11-10-2022 Cardiolipin IgG and IgM panel - Serum ANTI-CARDIOLIPIN AB Lab Routine Lupus anticoagulant disorder (HCC) Thrombocytopenia (HCC) Expected: 09/10/2022, Expires: 11/10/2022 [facility] Work Phone: Payers Date Payer Category Payer Unknown [id number] 2018 Unknown [id number] 2018 Unknown [id number] 2008 Unknown 1955 Unknown [id number] [id number] 1955 Unknown [id number] 1955 Unknown [id number] [id number] [id number] 1955 Unknown [id number] [id number] Social History Date Type Detail Facility Start: 06-08-2022 Tobacco smoking stat us MOIS Never smoked tobacco [facility] Start: 06-08-2022 Tobacco use and exposure Smoke less tobacco non-user [facility] Start: 06-08-2022 End: 08-20-2022 Alcohol intake Current drinker of alcohol (finding) [facility] Start: 06-08-2022 Alcohol Comment rare [facility] Start: 1955 Sex Assigned At Not on file [facility] Progress note 08-20-2022 Note Date & Type Note Facility 08-20-2022 Note HNO ID: [id number] Author: Nuria Duff MD Service: ? Author [...] Cervantes No primary care provider on file. [facility] History of Present illness Narrative 08-20-2022 Nuria [...] provider on file. documented in this encounter [facility] Note 08-10-2022 Telephone Encounter - Waleska [...] R/S? PLEASE ADVISE. documented in this encounter [facility] Note 06-12-2022 Telephone Encounter - Nadja Lewis [...] Nacho Cervantes MD documented in this encounter [facility] History and physical note 06-08-2022 Nacho Cervantes MD - 06/08/2022 10:45 AM EST Note Date & Type Note Facility 06-08-2022 History and physical note Hematology and Medical Oncology PATIENT NAME: Meenu White. CLINIC NO: [id number]. ATTENDING PHYSICIAN: Nacho Cervantes MD. 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 She denies unusual rash. No history of [...] Abs Lymph 1.00 - 4.00 k/uL 1.75 [place]% % 8.8 Abs [place] <0.87 k/uL 0.58 [place]% % 4.1 Abs [...] with more than 50% of the total [id number] time of the visit in counseling / coordination of care. The patient was allowed enough time to ask questions. All questions were answered to her satisfaction. Patient verbalized understanding of thrombocytopenia and agreed to follow-up with PCP. Nacho Cervantes MD. ELECTRONICALLY SIGNED Cc: Dr. Marly García documented in this encounter [facility] Evaluation note Note Date & Type Note Facility documented in this encounter [facility] Evaluation note Note Date & Type Note Facility documented in this encounter [facility] Evaluation note Note Date & Type Note Facility documented in this encounter [facility] Evaluation note Note Date & Type Note Facility documented in this encounter [facility] Summary Purpose Family History No Family History Records FoundNo Family History Records FoundNo Family History Records FoundNo Family History Records Found Advance Directives No Advanced Directives Records FoundNo Advanced Directives Records FoundNo Advanced Directives Records FoundNo Advanced Directives Records Found Additional Source Comments INFORMATION SOURCE (unrecogn ized section and content) DATE CREATED AUTHOR AUTHOR'S ORGANIZ ATION 08/30/2018 [facility] DATE CREATED AUTHOR AUTHOR'S ORGANIZ ATION 06/21/2022 [facility] DATE CREATED AUTHOR AUTHOR'S ORGANIZ ATION 08/29/2022 [facility] Source Comments (unrecognize d section and content) In the event this informatio n is protected by the Federal Confidentiality of Alcohol and Drug Abuse Patient Records regulations: The Federal rules restrict any use of the information to criminally investigate or prosecute any alcohol or drug abuse patient.[facility] the event this information is protected by the Federal Confidentiality of Alcohol and Drug Abuse Patient Records regulations: The Federal rules restrict any use of the information to criminally investigate or prosecute any alcohol or drug abuse patient.[facility] the event this information is protected by the Federal Confidentiality of Alcohol and Drug Abuse Patient Records regulations: The Federal rules restrict any use of the information to criminally investigate or prosecute any alcohol or drug abuse patient.[facility] the event this information is protected by the Federal Confidentiality of Alcohol and Drug Abuse Patient Records regulations: The Federal rules restrict any use of the information to criminally investigate or prosecute any alcohol or drug abuse patient.[facility] the event this information is protected by the Federal Confidentiality of Alcohol and Drug Abuse Patient Records regulations: The Federal rules restrict any use of the information to criminally investigate or prosecute any alcohol or drug abuse patient.[facility] Reason for Visit (unrecogniz ed section and content) Reason Comments Results Appointment Reason Comments Patient Question Reason Comments Established Patient Care Teams (unrecognized sec tion and content) Airplane Woodworker Relationship Specialty Start Date End Date Marly Jordan , [place] 06/01/22 Airplane Woodworker Relationship Specialty Start Date End Date Marly Jordan , [place] 06/01/22 Nacho Cervantes MD [address] [place] [address] Hematology/Oncology 06/14/22 Airplane Woodworker Relationship Specialty Start Date End Date PratibhaMarly otero , [place] 06/01/22 Nacho Cervantes MD [address] [place], [place] [id number] [phone] Hematology/Oncology 06/14/22 Nuria Duff MD [address] [place] [address] Oncology 08/10/22 Airplane Woodworker Relationship Specialty Start Date End Date PratibhaMarly otero , [place] 06/01/22 Nacho Cervantes MD [address] [place] [address] Hematology/Oncology 06/14/22 Nuria Duff MD [address] [place] [address] Oncology 08/10/22 FOR RECORDS PERTAINING TO PATIENTS [...] BE BASED ON THE PRIMARY CLINICAL RECORDS. [facility], [facility]. provides no warranty or guarantee of the accuracy or completeness of information in this document.
== END | disposition home or self-care (01) ==
LOC: OPBD 15:03
PROVIDERS: PCP Family Medicine; Referring Provider Family Medicine; Visit Provider Family Medicine
DX: Z78.0 Asymptomatic menopausal state (principal)
CPT/HCPCS: 77080

== ENCOUNTER → 2023-05-30 | Outpatient (CLI) | payer MEDICARE, SELFPAY ==
--- OUTSIDE RECORDS SUMMARY | 2023-05-30 08:46 | XMS RPT_ITS | CCD ---
Author Name Unknown Address [address] [place] [address] Organization [facility] Care Team Providers Care Venetian Blind Washer Name Role Phone MAURICIO BAHENA Attending Unavailable [...] [povidone iodine topical] Drug Allergy [facility] Repository (6 sources) Iodine; Translations: [IODINE] Drug Allergy 06-08-2022 [facility] Medications Completed/Discontinued Medications Medication Drug Class(es) [...] 97.39 [degF] Nuria Duff MD Work Phone: 08-20-2022 10:31-0400 Body weight 83.23 kg Nuria Duff MD Work Phone: 08-20-2022 10:31-0400 Diastolic blood pressure 69 mm[Hg] Nuria Duff MD Work Phone: 08-20-2022 10:31-0400 Heart rate 70 /min Nuria Duff MD Work Phone: 08-20-2022 10:31-0400 Systolic blood pressure 125 mm[Hg] Nuria Duff MD Work Phone: 06-08-2022 10:01-0500 Body height 156 cm Nacho Cervantes MD Work Phone: 06-08-2022 10:01-0500 Body temperature 98.4 [degF] Nacho Cervantes MD Work Phone: 06-08-2022 10:01-0500 Body weight 82.78 kg Nacho Cervantes MD Work Phone: 06-08-2022 10:01-0500 Diastolic blood pressure 84 mm[Hg] Nacho Cervantes MD Work Phone: 06-08-2022 10:01-0500 Heart rate 77 /min Nacho Cervantes MD Work Phone: 06-08-2022 10:01-0500 SaO2% (BldA) [Mass fraction] 98 % Nacho Cervantes MD Work Phone: 06-08-2022 10:01-0500 Systolic blood pressure 148 mm[Hg] Nacho Cervantes MD Work Phone: Encounters Encounter Date Encounter Type Care Provider Facility Start: 08-24-2022 End: 08-25-2022 ambulatory NURIA DUFF Facility:[facility] Start: 08-20-2022 End: 08-20-2022 ambulatory NACHO CERVANTES Facility:[facility] Start: 08-20-2022 End: 08-20-2022 ambulatory Nuria Duff MD Work Phone: Hematology/Oncology Plan of Treatment Date Care Activity Detail Author Start: 09-10-2022 End: 11-10-2022 Cardiolipin IgG and IgM panel - Serum ANTI-CARDIOLIPIN AB Lab Routine Lupus anticoagulant disorder (HCC) Thrombocytopenia (HCC) Expected: 09/10/2022, Expires: 11/10/2022 [facility] Work Phone: Payers Date Payer Category Payer Unknown [id number] 2018 Unknown [id number] 2018 Unknown [id number] 2008 Unknown 1955 Unknown [id number] 2.16.8 [id number] 1955 Unknown [id number] [id number] [id number] 1955 Unknown [id number] [id number] 1955 Unknown [id number] [id number] [id number] Social History Date Type Detail Facility Start: 06-08-2022 Tobacco smoking stat us AZIS Never smoked tobacco Start: 06-08-2022 Tobacco use and exposure Smoke less tobacco non-user Start: 06-08-2022 End: 08-20-2022 Alcohol intake Current drinker of alcohol (finding) Start: 06-08-2022 Alcohol Comment rare [facility] Start: 1955 Sex Assigned At Not on file [facility] Progress note 08-20-2022 Note Date & Type Note Facility 08-20-2022 Note HNO ID: [id number] Author: Nuria Duff MD Service: ? Author [...] Cervantes No primary care provider on file. [facility] History of Present illness Narrative 08-20-2022 [...] provider on file. documented in this encounter [facility] Note 08-10-2022 Telephone Encounter - Waleska [...] R/S? PLEASE ADVISE. documented in this encounter Note 06-12-2022 Telephone Encounter - Nadja Lewis [...] Nacho Cervantes MD documented in this encounter History and physical note 06-08-2022 Nacho Cervantes MD - 06/08/2022 10:45 AM EST Note Date & Type Note Facility 06-08-2022 History and physical note Hematology and Medical Oncology PATIENT NAME: Meenu White. CLINIC NO: [id number]. ATTENDING PHYSICIAN: Nacho Cervantes MD. 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 She denies unusual rash. No history of [...] Abs Lymph 1.00 - 4.00 k/uL 1.75 [place]% % 8.8 Abs [place] <0.87 k/uL 0.58 Eosin% % 4.1 Abs [...] with more than 50% of the total [id number] time of the visit in counseling / coordination of care. The patient was allowed enough time to ask questions. All questions were answered to her satisfaction. Patient verbalized understanding of thrombocytopenia and agreed to follow-up with PCP. Nacho Cervantes MD. ELECTRONICALLY SIGNED Cc: Dr. Marly García documented in this encounter Evaluation note Note Date & Type Note Facility documented in this encounter Evaluation note Note Date & Type Note Facility documented in this encounter Evaluation note Note Date & Type Note Facility documented in this encounter Evaluation note Note Date & Type Note Facility documented in this encounter Summary Purpose Family History No Family History Records FoundNo Family History Records FoundNo Family History Records FoundNo Family History Records Found Advance Directives No Advanced Directives Records FoundNo Advanced Directives Records FoundNo Advanced Directives Records FoundNo Advanced Directives Records Found Additional Source Comments INFORMATION SOURCE (unrecogn ized section and content) DATE CREATED AUTHOR AUTHOR'S ORGANIZ ATION 08/30/2018 [facility] DATE CREATED AUTHOR AUTHOR'S ORGANIZ ATION 06/21/2022 [facility] DATE CREATED AUTHOR AUTHOR'S ORGANIZ ATION 08/29/2022 [facility] Source Comments (unrecognize d section and content) In the event this informatio n is protected by the Federal Confidentiality of Alcohol and Drug Abuse Patient Records regulations: The Federal rules restrict any use of the information to criminally investigate or prosecute any alcohol or drug abuse patient.In the event this information is protected by the Federal Confidentiality of Alcohol and Drug Abuse Patient Records regulations: The Federal rules restrict any use of the information to criminally investigate or prosecute any alcohol or drug abuse patient.In the event this information is protected by the Federal Confidentiality of Alcohol and Drug Abuse Patient Records regulations: The Federal rules restrict any use of the information to criminally investigate or prosecute any alcohol or drug abuse patient.In the event this information is protected by the Federal Confidentiality of Alcohol and Drug Abuse Patient Records regulations: The Federal rules restrict any use of the information to criminally investigate or prosecute any alcohol or drug abuse patient.In the event this information is protected by the Federal Confidentiality of Alcohol and Drug Abuse Patient Records regulations: The Federal rules restrict any use of the information to criminally investigate or prosecute any alcohol or drug abuse patient. Reason for Visit (unrecogniz ed section and content) Reason Comments Results Appointment Reason Comments Patient Question Reason Comments Established Patient Care Teams (unrecognized sec tion and content) Venetian Blind Washer Relationship Specialty Start Date End Date Marly Jordan , [place] 06/01/22 Venetian Blind Washer Relationship Specialty Start Date End Date Marly Jordan , [place] 06/01/22 Nacho Cervantes MD [address] [place] [address] Hematology/Oncology 06/14/22 Venetian Blind Washer Relationship Specialty Start Date End Date PratibhaMarly otero , [place] 06/01/22 Nacho Cervantes MD [address] [place], [place] [address] [phone] Hematology/Oncology 06/14/22 Nuria Duff MD [address] [place] [address] Oncology 08/10/22 Venetian Blind Washer Relationship Specialty Start Date End Date PratibhaMarly otero , [place] 06/01/22 Nacho Cervantes MD [address] [place] [address] Hematology/Oncology 06/14/22 Nuria Duff MD [address] [place] [address] Oncology 08/10/22 FOR RECORDS PERTAINING TO PATIENTS [...] BE BASED ON THE PRIMARY CLINICAL RECORDS. [facility], [facility]. provides no warranty or guarantee of the accuracy or completeness of information in this document.
[2023-06-03 15:08] LABS: QNTFERON TB Mitogen Value > 10.00 IU/mL (.); QNTFERON TB Nil Value 0 IU/mL (.); QNTFERON TB1+ Ag Value 0 IU/mL (.); QNTFERON TB2+ Ag Value 0 IU/mL (.); QNTIFERON TB Positive Criteria Negative (Negative)
== END | disposition home or self-care (01) ==
PROVIDERS: PCP Family Medicine; Referring Provider Internal Medicine Rheumatology; Visit Provider Internal Medicine Rheumatology
DX: L40.59 Other psoriatic arthropathy (principal); Z79.899 Other long term (current) drug therapy; L40.8 Other psoriasis; M15.9 Polyosteoarthritis, unspecified; K21.00 Gastro-esophageal reflux disease with esophagitis, without bleeding; K76.0 Fatty (change of) liver, not elsewhere classified; I10 Essential (primary) hypertension; H34.231 Retinal artery branch occlusion, right eye; H43.812 Vitreous degeneration, left eye
CPT/HCPCS: 36415; 86480

== ENCOUNTER → 2023-07-22 | Outpatient (CLI) | payer MEDICARE, SELFPAY ==
[2023-07-22 09:38] LABS: Bacteria 0 SEEN /hpf (None Seen); Mucous, Urine 0 SEEN /hpf (<or=2+)
--- OUTSIDE RECORDS SUMMARY | 2023-07-22 09:59 | XMS RPT_ITS | CCD ---
Author Name Unknown Address [address] [place] [address] Organization [facility] Care Team Providers Care Honeycomb Blanket Maker Name Role Phone MAURICIO BAHENA Attending Unavailable [...] Povidone-Iodine; Translations: [povidone iodine topical] Drug Allergy [facility] Repository (6 sources) Iodine; Translations: [IODINE] Drug Allergy 06-08-2022 [facility] Medications Completed/Discontinued Medications Medication Drug Class(es) [...] 97.39 [degF] Nuria Duff MD Work Phone: [facility] 08-20-2022 10:31-0400 Body weight 83.23 kg Nuria Duff MD Work Phone: [facility] 08-20-2022 10:31-0400 Diastolic blood pressure 69 mm[Hg] Nuria Duff MD Work Phone: [facility] 08-20-2022 10:31-0400 Heart rate 70 /min Nuria Duff MD Work Phone: [facility] 08-20-2022 10:31-0400 Systolic blood pressure 125 mm[Hg] Nuria Duff MD Work Phone: [facility] 06-08-2022 10:01-0500 Body height 156 cm Nacho Cervantes MD Work Phone: [facility] 06-08-2022 10:01-0500 Body temperature 98.4 [degF] Nacho Cervantes MD Work Phone: [facility] 06-08-2022 10:01-0500 Body weight 82.78 kg Nacho Cervantes MD Work Phone: [facility] 06-08-2022 10:01-0500 Diastolic blood pressure 84 mm[Hg] Nacho Cervantes MD Work Phone: [facility] 06-08-2022 10:01-0500 Heart rate 77 /min Nacho Cervantes MD Work Phone: [facility] 06-08-2022 10:01-0500 SaO2% (BldA) [Mass fraction] 98 % Nacho Cervantes MD Work Phone: [facility] 06-08-2022 10:01-0500 Systolic blood pressure 148 mm[Hg] Nacho Cervantes MD Work Phone: [facility] Encounters Encounter Date Encounter Type Care Provider Facility Start: 08-24-2022 End: 08-25-2022 ambulatory NURIA DUFF Facility:[facility] Start: 08-20-2022 End: 08-20-2022 ambulatory NACHO CERVANTES Facility:[facility] Start: 08-20-2022 End: 08-20-2022 ambulatory Nuria Duff MD Work Phone: Hematology/Oncology Plan of Treatment Date Care Activity Detail Author Start: 09-10-2022 End: 11-10-2022 Cardiolipin IgG and IgM panel - Serum ANTI-CARDIOLIPIN AB Lab Routine Lupus anticoagulant disorder (HCC) Thrombocytopenia (HCC) Expected: 09/10/2022, Expires: 11/10/2022 [facility] Work Phone: Payers Date Payer Category Payer Unknown [id number] 2018 Unknown [id number] 2018 Unknown [id number] 2008 Unknown 1955 Unknown [id number] 1955 Unknown [id number] 1955 Unknown [id number] 1955 Unknown [id number] Social History Date Type Detail Facility Start: 06-08-2022 Tobacco smoking stat us [facility] Never smoked tobacco [facility] Start: 06-08-2022 Tobacco use and exposure Smoke less tobacco non-user [facility] Start: 06-08-2022 End: 08-20-2022 Alcohol intake Current drinker of alcohol (finding) [facility] Start: 06-08-2022 Alcohol Comment rare [facility] Start: 1955 Sex Assigned At Not on file [facility] Progress note 08-20-2022 Note Date & Type Note Facility 08-20-2022 Note HNO ID: [id number] Author: Nuria Duff MD Service: ? Author [...] Cervantes No primary care provider on file. [facility] History of Present illness Narrative 08-20-2022 [...] provider on file. documented in this encounter [facility] Note 08-10-2022 Telephone Encounter - Waleska [...] to be totally asymptomatic before coming in. aNdja Lewis LPN PT TESTED POSITIVE ON 08/09. SHE HAS APPT ON 08/13 WONDERING IF SHE NEEDS TO R/S? PLEASE ADVISE. documented in this encounter [facility] Note 06-12-2022 Telephone Encounter - Nadja [...] Nacho Cervantes MD documented in this encounter [facility] History and physical note 06-08-2022 Nacho Cervantes MD - 06/08/2022 10:45 AM EST Note Date & Type Note Facility 06-08-2022 History and physical note Hematology and Medical Oncology PATIENT NAME: Meenu White. CLINIC NO: [id number]. ATTENDING PHYSICIAN: Nacho Cervantes MD. 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 She denies unusual rash. No history of [...] Abs Lymph 1.00 - 4.00 k/uL 1.75 [place]% % 8.8 Abs [place] <0.87 k/uL 0.58 [place]% % 4.1 Abs [...] with more than 50% of the total vwmy-gd-popa time of the visit in counseling / coordination of care. The patient was allowed enough time to ask questions. All questions were answered to her satisfaction. Patient verbalized understanding of thrombocytopenia and agreed to follow-up with PCP. Nacho Cervantes MD. ELECTRONICALLY SIGNED Cc: Dr. Marly García documented in this encounter [facility] Evaluation note Note Date & Type Note Facility documented in this encounter [facility] Evaluation note Note Date & Type Note Facility documented in this encounter [facility] Evaluation note Note Date & Type Note Facility documented in this encounter [facility] Evaluation note Note Date & Type Note Facility documented in this encounter [facility] Summary Purpose Family History No Family History Records FoundNo Family History Records FoundNo Family History Records FoundNo Family History Records Found Advance Directives No Advanced Directives Records FoundNo Advanced Directives Records FoundNo Advanced Directives Records FoundNo Advanced Directives Records Found Additional Source Comments INFORMATION SOURCE (unrecogn ized section and content) DATE CREATED AUTHOR AUTHOR'S ORGANIZ ATION 08/30/2018 [facility] DATE CREATED AUTHOR AUTHOR'S ORGANIZ ATION 06/21/2022 [facility] DATE CREATED AUTHOR AUTHOR'S ORGANIZ ATION 08/29/2022 [facility] Source Comments (unrecognize d section and content) In the event this informatio n is protected by the Federal Confidentiality of Alcohol and Drug Abuse Patient Records regulations: The Federal rules restrict any use of the information to criminally investigate or prosecute any alcohol or drug abuse patient.[facility] the event this information is protected by the Federal Confidentiality of Alcohol and Drug Abuse Patient Records regulations: The Federal rules restrict any use of the information to criminally investigate or prosecute any alcohol or drug abuse patient.[facility] the event this information is protected by the Federal Confidentiality of Alcohol and Drug Abuse Patient Records regulations: The Federal rules restrict any use of the information to criminally investigate or prosecute any alcohol or drug abuse patient.[facility] the event this information is protected by the Federal Confidentiality of Alcohol and Drug Abuse Patient Records regulations: The Federal rules restrict any use of the information to criminally investigate or prosecute any alcohol or drug abuse patient.[facility] the event this information is protected by the Federal Confidentiality of Alcohol and Drug Abuse Patient Records regulations: The Federal rules restrict any use of the information to criminally investigate or prosecute any alcohol or drug abuse patient.[facility] Reason for Visit (unrecogniz ed section and content) Reason Comments Results Appointment Reason Comments Patient Question Reason Comments Established Patient Care Teams (unrecognized sec tion and content) Honeycomb Blanket Maker Relationship Specialty Start Date End Date Marly Jordan , [place] 06/01/22 Honeycomb Blanket Maker Relationship Specialty Start Date End Date Marly Jordan , [place] 06/01/22 Nacho Cervantes MD [address] [place] [address] Hematology/Oncology 06/14/22 Honeycomb Blanket Maker Relationship Specialty Start Date End Date PratibhaMarly otero , [place] 06/01/22 Nacho Cervantes MD [address] [place], [place] [id number] [phone] Hematology/Oncology 06/14/22 Nuria Duff MD [address] [place] [address] Oncology 08/10/22 Honeycomb Blanket Maker Relationship Specialty Start Date End Date PratibhaMarly otero , [place] 06/01/22 Nacho Cervantes MD [address] [place] [address] Hematology/Oncology 06/14/22 Nuria Duff MD [address] [place] [address] Oncology 08/10/22 FOR RECORDS PERTAINING TO PATIENTS [...] BE BASED ON THE PRIMARY CLINICAL RECORDS. [facility], [facility]. provides no warranty or guarantee of the accuracy or completeness of information in this document.
[2023-07-22 12:08] LABS: Absolute Lymphocyte Count 1.41 X10^3/uL (0.83-4.51); Absolute Neutrophil Count 3.6 X10^3/uL (2.0-7.7); Basophil# 0.03 X10^3/uL; Basophil% 0.5 % (0-1); Eosinophil# 0.18 X10^3/uL; Eosinophils% 3.1 % (0-5); Hematocrit 40.3 % (37-47); Hemoglobin 13.7 g/dL (12.0-15.0); Lymphocyte # 1.41 X10^3/ul (0.83-4.51); Lymphocyte % 24.2 % (19-41); Mean Corpuscular Hgb 31.1 pg (27.0-32.0); Mean Corpuscular Volume 91.4 fL (81-99); Mean Platelet Vol. 12.3 fl (6.2-12.0); Monocyte% 8.6 % (0-10); NRBC Flagged by Analyzer 0 % (0-5); Neutrophil # 3.64 X10^3/uL (2.7-7.7); Neutrophil % 62.6 % (47-70); Platelet Count 128 K/mm3 (150-450); RBC Distribution Width CV 12.7 % (11.6-14.6); RBC Distribution Width SD 42.2 fl (35.1-43.9); Red Blood Count 4.41 M/mm3 (4.2-5.4); White Blood Count 5.8 K/mm3 (4.4-11.0)
[2023-07-22 12:21] LABS: Color, Urine Yellow (Yellow); Glucose, Dipstick Normal (Normal); Ketone-Dipstick 5 mg/dl (Negative); Leukocyte Esterase-Dipstick 500 /ul (Negative); Nitrite-Dipstick Negative (Negative); Occult Blood-Urine 10 /ul (Negative); Protein-Dipstick 30 mg/dl (Negative); Specific Gravity, Urine 1.025 (1.002-1.030); Urine Bilirubin Dipstick Negative (Negative); Urine Clarity Sl. Cloudy (Clear); Urine Urobilinogen Normal (Normal)
[2023-07-22 12:28] LABS: Red Blood Cells-Urine 0-5 SEEN /hpf (0-5); Squamous Epithelial Cells - UA 0-5 SEEN /hpf (5-10); White Blood Cells 25-50 SEEN /hpf (0-5)
[2023-07-22 12:29] LABS: Calcium Oxalate Crystals Ur 1+ /hpf (<or=2+)
[2023-07-22 12:31] LABS: Hemoglobin A1c 5.6 % (3.8-5.6)
[2023-07-22 12:41] LABS: ALB/GLOB Ratio 1.1 RATIO (0.9-2.4); AST(SGOT) 26 U/L (15-37); Alanine Aminotransfer ALT/SGPT 32 U/L (13-56); Albumin, Serum 3.9 g/dL (3.2-5.0); Alkaline Phosphatase 72 U/L (45-117); Anion Gap 7 (5-15); BUN 8 mg/dL (7-18); BUN/Creat Ratio 12.5 RATIO (10-20); Calcium,Total 9.9 mg/dL (8.5-10.1); Chloride 108 mmol/L (98-107); Cholesterol 110 mg/dL (200); Creatinine, Serum 0.64 mg/dL (0.55-1.02); EST Glomerular Filtration Rate 99 mL/min (>60); Est Glom Filt Rate - Afr Amer 120 mL/min (>60); Globulin 3.5 g/dL (2.2-4.2); Glucose 101 mg/dL (74-106); High Density Lipoprotein 52 mg/dL; Protein, Total 7.4 g/dL (6.4-8.2); Sodium Level 140 mmol/L (136-145); Thyroid Stim Hormone (TSH) 1.12 uIU/mL (0.358-3.74); Triglycerides 85 mg/dL; Very Low Density Lipoprotein 17 mg/dL (5-40)
== END | disposition home or self-care (01) ==
LOC: MFPLAB 09:36
PROVIDERS: PCP Family Medicine; Visit Provider Family Medicine
DX: I10 Essential (primary) hypertension (principal); R73.02 Impaired glucose tolerance (oral)
CPT/HCPCS: 36415; 80053; 80061; 81001; 83036; 84443; 85025

== ENCOUNTER → 2023-09-27 | Outpatient (CLI) | payer MEDICARE, SELFPAY ==
[2023-09-27 10:32] LABS: Absolute Neutrophil Count 3.7 X10^3/uL (2.0-7.7); Basophil# 0.03 X10^3/uL; Basophil% 0.5 % (0-1); Eosinophil# 0.19 X10^3/uL; Eosinophils% 3.2 % (0-5); Hemoglobin 13.2 g/dL (12.0-15.0); Lymphocyte % 22.2 % (19-41); Mean Corp Hgb Conc 33.8 g/dL (32-36); Mean Corpuscular Hgb 30.6 pg (27.0-32.0); Mean Corpuscular Volume 90.5 fL (81-99); Mean Platelet Vol. 12.3 fl (6.2-12.0); Monocyte# 0.61 X10^3/uL; Monocyte% 10.4 % (0-10); NRBC Flagged by Analyzer 0 % (0-5); Neutrophil # 3.69 X10^3/uL (2.7-7.7); Neutrophil % 63.2 % (47-70); Platelet Count 113 K/mm3 (150-450); RBC Distribution Width CV 11.9 % (11.6-14.6); RBC Distribution Width SD 39.3 fl (35.1-43.9); Red Blood Count 4.31 M/mm3 (4.2-5.4); White Blood Count 5.9 K/mm3 (4.4-11.0)
[2023-09-27 10:48] LABS: International Normalized Ratio 1.1
[2023-09-27 11:06] LABS: AST(SGOT) 16 U/L (15-37); Alanine Aminotransfer ALT/SGPT 20 U/L (13-56); Albumin, Serum 3.6 g/dL (3.2-5.0); Alkaline Phosphatase 66 U/L (45-117); Anion Gap 4 (5-15); BUN 10 mg/dL (7-18); CRP < 2.90 mg/L (0.0-3.0); Calcium,Total 9.4 mg/dL (8.5-10.1); Chloride 110 mmol/L (98-107); Cholesterol 115 mg/dL (200); Creatinine, Serum 0.72 mg/dL (0.55-1.02); EST Glomerular Filtration Rate 87 mL/min (>60); Est Glom Filt Rate - Afr Amer 105 mL/min (>60); Globulin 3.5 g/dL (2.2-4.2); Glucose 98 mg/dL (74-106); High Density Lipoprotein 50 mg/dL; Potassium 3.8 mmol/L (3.5-5.1); Protein, Total 7.1 g/dL (6.4-8.2); Sodium Level 140 mmol/L (136-145); Triglycerides 119 mg/dL; Very Low Density Lipoprotein 24 mg/dL (5-40)
[2023-09-30 10:07] LABS: ANTINUCLEAR ANTIBODIES DIRECT Negative (Negative)
== END | disposition home or self-care (01) ==
LOC: LAB 10:15
PROVIDERS: PCP Family Medicine; Referring Provider Internal Medicine; Visit Provider Internal Medicine
DX: K75.81 Nonalcoholic steatohepatitis (NASH) (principal); K75.4 Autoimmune hepatitis; Z86.018 Personal history of other benign neoplasm
CPT/HCPCS: 36415; 80053; 80061; 85025; 85610; 86038; 86140; 86225; 86235

== ENCOUNTER → 2023-10-29 | Outpatient (CLI) | payer MEDICARE, SELFPAY ==
--- NOTE | 2023-10-29 13:20 | CT_ITS ---
STUDY: CT ABDOMEN AND PELVIS WITH AND WITHOUT CONTRAST REASON FOR EXAM: Female, 68 years old. [facility], HCC protocol, R/O HCC RADIATION DOSAGE (If Supplied By Facility): CTDIvol = ( 16.32 ) mGy, DLP = ( 1756.55 ) mGycm TECHNIQUE: Transaxial images were obtained from the dome of the diaphragm to the symphysis pubis without oral contrast. IV 100mL Isovue-300 was administered. Sagittal and coronal images were reconstructed. Individualized dose optimization techniques were used for this CT. COMPARISON: None. FINDINGS: The visualized lung bases are unremarkable. Coronary artery calcification. 5 mm hypodensity in the peripheral superior lateral aspect of the right lobe of the liver suggestive of a small cyst. A similar-appearing hypodensity is seen along the medial aspect of the dome of the right lobe of the liver measuring 7.7 mm. Fatty infiltration of the liver. Normal gallbladder and extrahepatic biliary system. Normal spleen. Normal pancreas. Normal bilateral adrenal glands. Normal right kidney. Punctate nonobstructive calculus in the lower pole calyx of the left kidney. Normal visualized stomach. Normal small intestine. Normal colon. The appendix is visualized and appears normal. There is scattered atherosclerotic calcification of the abdominal aorta, without a demonstrated aneurysm. Normal inferior vena cava. There is a small retroperitoneal lymphadenopathy with enlarged nodes no greater than 10mm in the short axis diameter. Normal urinary bladder. Bilateral tubal ligation clips. Normal abdominal wall. There are diffuse degenerative changes of the visualized lumbar spine. CT/CT Abd/Pelvis W/WO Contrast IMPRESSION: Fatty infiltration of the liver. Subcentimeter cyst in the liver. Electronically Signed: Dago Solis MD at 14:44 EDT ,
== END | disposition home or self-care (01) ==
LOC: CT 13:19
PROVIDERS: PCP Family Medicine; Referring Provider Internal Medicine; Visit Provider Internal Medicine
DX: K74.3 Primary biliary cirrhosis (principal); K75.4 Autoimmune hepatitis; K75.81 Nonalcoholic steatohepatitis (NASH)
CPT/HCPCS: 74178; Q9967

== ENCOUNTER → 2023-11-15 | Outpatient (CLI) | payer MEDICARE, SELFPAY ==
[2023-11-15 09:33] LABS: Bacteria 0 SEEN /hpf (None Seen); Red Blood Cells-Urine 0 SEEN /hpf (0-5)
[2023-11-15 12:20] LABS: Absolute Lymphocyte Count 1.28 X10^3/uL (0.83-4.51); Absolute Neutrophil Count 2.9 X10^3/uL (2.0-7.7); Basophil# 0.03 X10^3/uL; Basophil% 0.6 % (0-1); Eosinophil# 0.29 X10^3/uL; Eosinophils% 5.8 % (0-5); Hematocrit 40.2 % (37-47); Hemoglobin 13.3 g/dL (12.0-15.0); Lymphocyte # 1.28 X10^3/ul (0.83-4.51); Lymphocyte % 25.5 % (19-41); Mean Corp Hgb Conc 33.1 g/dL (32-36); Mean Corpuscular Hgb 30.4 pg (27.0-32.0); Mean Platelet Vol. 12.9 fl (6.2-12.0); Monocyte# 0.54 X10^3/uL; Monocyte% 10.8 % (0-10); NRBC Flagged by Analyzer 0 % (0-5); Neutrophil # 2.86 X10^3/uL (2.7-7.7); Neutrophil % 57.1 % (47-70); Platelet Count 108 K/mm3 (150-450); RBC Distribution Width CV 12.1 % (11.6-14.6); RBC Distribution Width SD 40.7 fl (35.1-43.9); Red Blood Count 4.37 M/mm3 (4.2-5.4)
[2023-11-15 12:27] LABS: Color, Urine Yellow (Yellow); Glucose, Dipstick Normal (Normal); Ketone-Dipstick Negative (Negative); Leukocyte Esterase-Dipstick 25 /ul (Negative); Nitrite-Dipstick Negative (Negative); Occult Blood-Urine Negative /ul (Negative); Protein-Dipstick Negative (Negative); Urine Bilirubin Dipstick Negative (Negative); Urine Clarity Sl. Cloudy (Clear); Urine Urobilinogen Normal (Normal)
[2023-11-15 12:47] LABS: Vitamin B12 222 pg/mL (211-911); Vitamin D,25 Hydroxy 61.7 ng/mL
[2023-11-15 12:52] LABS: ALB/GLOB Ratio 1.1 RATIO (0.9-2.4); AST(SGOT) 18 U/L (15-37); Alanine Aminotransfer ALT/SGPT 23 U/L (13-56); Albumin, Serum 3.7 g/dL (3.2-5.0); Alkaline Phosphatase 74 U/L (45-117); Anion Gap 10 (5-15); BUN 11 mg/dL (7-18); BUN/Creat Ratio 16.3 RATIO (10-20); Calcium,Total 9.7 mg/dL (8.5-10.1); Chloride 105 mmol/L (98-107); Cholesterol 127 mg/dL (200); Creatinine, Serum 0.68 mg/dL (0.55-1.02); EST Glomerular Filtration Rate 93 mL/min (>60); Est Glom Filt Rate - Afr Amer 112 mL/min (>60); Globulin 3.4 g/dL (2.2-4.2); Glucose 100 mg/dL (74-106); High Density Lipoprotein 56 mg/dL; Protein, Total 7.1 g/dL (6.4-8.2); Sodium Level 140 mmol/L (136-145); Triglycerides 112 mg/dL; Very Low Density Lipoprotein 22 mg/dL (5-40)
[2023-11-15 13:01] LABS: Mucous, Urine 1+ /hpf (<or=2+); Squamous Epithelial Cells - UA 0-5 SEEN /hpf (5-10); White Blood Cells 0-5 SEEN /hpf (0-5)
[2023-11-15 13:34] LABS: Hemoglobin A1c 5.4 % (3.8-5.6)
[2023-11-20 13:08] LABS: VITAMIN B6 5.7 ug/L (3.4-65.2); Vitamin B1, Thiamine 79.4 nmol/L (66.5-200.0)
== END | disposition home or self-care (01) ==
LOC: MFPLAB 09:31
PROVIDERS: PCP Family Medicine; Visit Provider Family Medicine
DX: I10 Essential (primary) hypertension (principal); E55.9 Vitamin D deficiency, unspecified; R73.02 Impaired glucose tolerance (oral); E53.9 Vitamin B deficiency, unspecified
CPT/HCPCS: 80053; 80061; 81001; 82306; 82607; 83036; 84207; 84425; 85025

== ENCOUNTER → 2024-02-13 | Outpatient (CLI) | payer MEDICARE, SELFPAY ==
[2024-02-13 09:18] LABS: Absolute Lymphocyte Count 1.37 X10^3/uL (0.83-4.51); Absolute Neutrophil Count 3.2 X10^3/uL (2.0-7.7); Basophil# 0.03 X10^3/uL; Basophil% 0.5 % (0-1); Eosinophil# 0.18 X10^3/uL; Eosinophils% 3.3 % (0-5); Hematocrit 39.7 % (37-47); Hemoglobin 13.6 g/dL (12.0-15.0); Lymphocyte # 1.37 X10^3/ul (0.83-4.51); Mean Corp Hgb Conc 34.3 g/dL (32-36); Mean Corpuscular Hgb 30.9 pg (27.0-32.0); Mean Corpuscular Volume 90.2 fL (81-99); Mean Platelet Vol. 11.4 fl (6.2-12.0); Monocyte# 0.68 X10^3/uL; Monocyte% 12.4 % (0-10); NRBC Flagged by Analyzer 0 % (0-5); Neutrophil % 58.3 % (47-70); Platelet Count 154 K/mm3 (150-450); RBC Distribution Width CV 12.2 % (11.6-14.6); RBC Distribution Width SD 39.9 fl (35.1-43.9); White Blood Count 5.5 K/mm3 (4.4-11.0)
[2024-02-13 09:21] LABS: International Normalized Ratio 1.1; Prothrombin Time (Protime)PT. 13.7 SECONDS (11.7-14.9)
[2024-02-13 10:03] LABS: CRP < 2.90 mg/L (0.0-3.0); T4 Free Direct 1.04 ng/dL (0.76-1.46)
[2024-02-13 10:53] LABS: Hemoglobin A1c 5.3 % (3.8-5.6)
[2024-02-14 14:10] LABS: Anti-Smooth Muscle ABS 18 Units (0-19)
[2024-02-14 15:09] LABS: Anti-Centromere B Ab <0.2 AI (0.0-0.9); Anti-Chromatin <0.2 AI (0.0-0.9); Anti-Jo <0.2 AI (0.0-0.9); Anti-Mitochondrial AB <20.0 Units (0.0-20.0); Anti-Scleroderma-70 AB <0.2 AI (0.0-0.9); Anti-dsDNA Ab 1 IU/mL (0-9); RNP Ab 0.2 AI (0.0-0.9); SJOGREN'S Anti-SS-A test < 0.2 AI (0.0-0.9); SJOGREN'S Anti-SS-B test < 0.2 AI (0.0-0.9); Smith Ab <0.2 AI (0.0-0.9)
== END | disposition home or self-care (01) ==
LOC: LAB 08:31
PROVIDERS: PCP Family Medicine; Referring Provider Internal Medicine; Visit Provider Internal Medicine
DX: K74.3 Primary biliary cirrhosis (principal); K75.4 Autoimmune hepatitis; K75.81 Nonalcoholic steatohepatitis (NASH); R79.89 Other specified abnormal findings of blood chemistry; U07.1 COVID-19; K21.9 Gastro-esophageal reflux disease without esophagitis
CPT/HCPCS: 36415; 83036; 83516; 84439; 85025; 85610; 86140; 86225; 86235

== ENCOUNTER → 2024-06-01 | Outpatient (CLI) | payer MEDICARE, SELFPAY ==
--- NOTE | 2024-06-01 12:34 | BI_ITS ---
MAMMOGRAPHY - BILATERAL SCREENING REASON FOR EXAM: Female, 68 years old. Routine annual screening examination. PERTINENT HISTORY: Non-contributory. TECHNIQUE: Digital bilateral breast leidy (3D mammographic acquisition) in the CC and MLO projections. 2-D mediolateral oblique (MLO) and craniocaudad (CC) views of both breasts were obtained. CAD: Full Field Digital Mammography with Computer Added Detection was performed. COMPARISON: Comparison is made with prior study dated May 06, 2023 and November 30, 2019. FINDINGS: Breast Composition: There are scattered areas of fibroglandular density. There are no dominant masses or suspicious calcifications. No other significant abnormalities are identified. There has been no significant change since the prior study. BI/SCRN MAMM (CAD)W/LEIDY BILAT IMPRESSION: Stable bilateral screening mammogram. Yearly follow-up mammogram recommended. (A) ASSESSMENT CATEGORY: BIRADS Category 1: Negative. A letter regarding these results will be sent to the patient by the facility within 30 days. Approximately 10% of breast cancers are not detected by mammography. A normal mammogram should not delay biopsy of a clinically suspicious abnormality. [id number] Electronically Signed: Dago Solis MD at 10:15 EST ,
[2024-06-01 13:35] LABS: Absolute Lymphocyte Count 1.97 X10^3/uL (0.83-4.51); Absolute Neutrophil Count 4.8 X10^3/uL (2.0-7.7); Basophil# 0.03 X10^3/uL; Basophil% 0.4 % (0-1); Eosinophil# 0.24 X10^3/uL; Eosinophils% 3.1 % (0-5); Hematocrit 41.2 % (37-47); Hemoglobin 13.9 g/dL (12.0-15.0); Lymphocyte # 1.97 X10^3/ul (0.83-4.51); Lymphocyte % 25.5 % (19-41); Mean Corp Hgb Conc 33.7 g/dL (32-36); Mean Corpuscular Hgb 29.9 pg (27.0-32.0); Mean Corpuscular Volume 88.6 fL (81-99); Mean Platelet Vol. 11.7 fl (6.2-12.0); Monocyte# 0.61 X10^3/uL; Monocyte% 7.9 % (0-10); NRBC Flagged by Analyzer 0 % (0-5); Neutrophil # 4.83 X10^3/uL (2.7-7.7); Neutrophil % 62.6 % (47-70); Platelet Count 127 K/mm3 (150-450); RBC Distribution Width CV 12.6 % (11.6-14.6); RBC Distribution Width SD 40.8 fl (35.1-43.9); Red Blood Count 4.65 M/mm3 (4.2-5.4); White Blood Count 7.7 K/mm3 (4.4-11.0)
[2024-06-01 13:47] LABS: AST(SGOT) 10 U/L (15-37); Alanine Aminotransfer ALT/SGPT 16 U/L (13-56); Albumin, Serum 3.9 g/dL (3.2-5.0); Alkaline Phosphatase 69 U/L (45-117); Anion Gap 7 (5-15); BUN 12 mg/dL (7-18); Calcium,Total 9.6 mg/dL (8.5-10.1); Chloride 106 mmol/L (98-107); EST Glomerular Filtration Rate 88 mL/min (>60); Est Glom Filt Rate - Afr Amer 106 mL/min (>60); Globulin 3.8 g/dL (2.2-4.2); Glucose 101 mg/dL (74-106); Potassium 3.7 mmol/L (3.5-5.1); Protein, Total 7.7 g/dL (6.4-8.2); Sodium Level 138 mmol/L (136-145)
== END | disposition home or self-care (01) ==
PROVIDERS: Internal Medicine Rheumatology; PCP Family Medicine; Referring Provider Family Medicine; Visit Provider Family Medicine
DX: Z12.31 Encounter for screening mammogram for malignant neoplasm of breast (principal); L40.59 Other psoriatic arthropathy; Z79.899 Other long term (current) drug therapy; L40.8 Other psoriasis
CPT/HCPCS: 36415; 77063; 77067; 80053; 85025

== ENCOUNTER → 2024-07-23 | Outpatient (CLI) | payer MEDICARE, SELFPAY ==
--- NOTE | 2024-07-23 09:48 | US_ITS ---
PROCEDURE: ULTRASOUND ABDOMEN LIMITED WITH ELASTOGRAPHY REASON FOR EXAM: NONALCOHOLIC FATTY LIVER DISEASE. AUTOIMMUNE HEPATITIS. COMPARISON: CT abdomen and pelvis dated 10/29/2023. TECHNIQUE: Right upper quadrant abdominal ultrasound. Real-time grayscale and color flow imaging was performed along with routine image documentation. Shear wave elastography for non-invasive assessment of liver tissue stiffness was performed and documented. FINDINGS: LIVER: Size: Unremarkable Length: 17.6 cm Echotexture: Coarse Contour: Normal Lesions: Left lobe sonolucent nodule measuring 0.5 x 0.4 x 0.3 cm. Blood flow: Hepatopetal. Elastography: EQI Med: 18.2 kPa EQI Med Luis Enrique: 2.5 m/s GALLBLADDER: Normal COMMON BILE DUCT: 0.50 cm in diameter. . PANCREAS: Normal Right kidney: Size measures 11.7 x 5.2 x 4.8 cm. Cortex measures 1.2 cm. US/ABD Limited w/ Elastography IMPRESSION: 1. F3 to F4 Metavir staging indicates high probability for significant hepatic fibrosis/cirrhosis. 2. Coarsened hepatic texture which suggests diffuse hepatocellular disease. 3. Small subcentimeter cyst, left hepatic lobe. Reference Values: SRU <1.37 m/s (5.7kPa): No to mild fibrosis 1.37 m/s - 2.2 m/s: Moderate to severe fibrosis >2.2 m/s (15kPa): Significant fibrosis / cirrhosis METAVIR Score F2 or higher: 1.34 m/s (5.7kPa) F3 or higher: 1.55 m/s (7.3kPa) F4: 1.80 m/s (10kPa) Reading Location: [place] [address]
== END | disposition home or self-care (01) ==
PROVIDERS: PCP Family Medicine; Referring Provider Internal Medicine; Visit Provider Internal Medicine
DX: K74.3 Primary biliary cirrhosis (principal); K75.4 Autoimmune hepatitis; K75.81 Nonalcoholic steatohepatitis (NASH); D69.6 Thrombocytopenia, unspecified
CPT/HCPCS: 76705; 76981

== ENCOUNTER → 2024-08-01 | Outpatient (CLI) | payer MEDICARE, SELFPAY ==
[2024-08-01 10:41] LABS: Absolute Lymphocyte Count 1.49 X10^3/uL (0.83-4.51); Absolute Neutrophil Count 3.9 X10^3/uL (2.0-7.7); Basophil# 0.02 X10^3/uL; Basophil% 0.3 % (0-1); Eosinophils% 9.2 % (0-5); Hemoglobin 13.6 g/dL (12.0-15.0); Lymphocyte # 1.49 X10^3/ul (0.83-4.51); Lymphocyte % 22.7 % (19-41); Mean Corp Hgb Conc 34.9 g/dL (32-36); Mean Corpuscular Hgb 30.9 pg (27.0-32.0); Mean Corpuscular Volume 88.6 fL (81-99); Mean Platelet Vol. 12.4 fl (6.2-12.0); Monocyte# 0.54 X10^3/uL; Monocyte% 8.2 % (0-10); NRBC Flagged by Analyzer 0 % (0-5); Neutrophil # 3.88 X10^3/uL (2.7-7.7); Neutrophil % 59.3 % (47-70); Platelet Count 142 K/mm3 (150-450); RBC Distribution Width CV 12.4 % (11.6-14.6); RBC Distribution Width SD 39.9 fl (35.1-43.9); White Blood Count 6.6 K/mm3 (4.4-11.0)
[2024-08-01 10:54] LABS: Prothrombin Time (Protime)PT. 13.2 SECONDS (11.7-14.9)
[2024-08-01 12:59] LABS: ALB/GLOB Ratio 1.6 RATIO (0.9-2.4); AST(SGOT) 18 U/L (<=31); Alanine Aminotransfer ALT/SGPT 12 U/L (<=34); Albumin, Serum 4.3 g/dL (3.4-4.8); Alkaline Phosphatase 73 U/L (35-104); Anion Gap 15 (5-15); BUN 10 mg/dL (4-19); BUN/Creat Ratio 13.5 RATIO (10-20); Calcium,Total 9.7 mg/dL (7.6-11.0); Carbon Dioxide 19.7 mmol/L (21.0-32.0); Chloride 106 mmol/L (98-108); Creatinine, Serum 0.72 mg/dL (0.70-1.20); EST Glomerular Filtration Rate 92 (>60); Globulin 2.7 g/dL (2.2-4.2); Glucose 92 mg/dL (70-99); Potassium 4.1 mmol/L (3.3-5.1); Sodium Level 140 mmol/L (133-145); Total Bilirubin 0.79 mg/dL (0.00-1.30)
[2024-08-01 13:01] LABS: CRP < 3.00 mg/L (0.0-3.0)
[2024-08-03 17:08] LABS: ANTINUCLEAR ANTIBODIES DIRECT Negative (Negative)
== END | disposition home or self-care (01) ==
LOC: LAB 09:08
PROVIDERS: PCP Family Medicine; Referring Provider Internal Medicine; Visit Provider Internal Medicine
DX: K75.81 Nonalcoholic steatohepatitis (NASH) (principal); K74.3 Primary biliary cirrhosis; K75.4 Autoimmune hepatitis; K76.9 Liver disease, unspecified; D69.6 Thrombocytopenia, unspecified
CPT/HCPCS: 36415; 80053; 85025; 85610; 86038; 86140; 86225; 86235

== ENCOUNTER → 2024-10-26 | Outpatient (CLI) | payer MEDICARE, SELFPAY ==
[2024-10-26 15:34] LABS: Absolute Lymphocyte Count 1.58 X10^3/uL (0.83-4.51); Absolute Neutrophil Count 4.4 X10^3/uL (2.0-7.7); Basophil# 0.02 X10^3/uL; Basophil% 0.3 % (0-1); Hematocrit 38.1 % (37-47); Hemoglobin 13.2 g/dL (12.0-15.0); Lymphocyte # 1.58 X10^3/ul (0.83-4.51); Lymphocyte % 23.6 % (19-41); Mean Corp Hgb Conc 34.6 g/dL (32-36); Mean Corpuscular Hgb 31.9 pg (27.0-32.0); Mean Platelet Vol. 12.2 fl (6.2-12.0); Monocyte# 0.49 X10^3/uL; Monocyte% 7.3 % (0-10); NRBC Flagged by Analyzer 0 % (0-5); Neutrophil # 4.38 X10^3/uL (2.7-7.7); Neutrophil % 65.5 % (47-70); Platelet Count 123 K/mm3 (150-450); RBC Distribution Width CV 13.6 % (11.6-14.6); RBC Distribution Width SD 45.8 fl (35.1-43.9); Red Blood Count 4.14 M/mm3 (4.2-5.4); White Blood Count 6.7 K/mm3 (4.4-11.0)
[2024-10-26 15:39] LABS: ALB/GLOB Ratio 1.7 RATIO (0.9-2.4); AST(SGOT) 23 U/L (<=31); Alanine Aminotransfer ALT/SGPT 16 U/L (<=34); Albumin, Serum 4.6 g/dL (3.4-4.8); Alkaline Phosphatase 70 U/L (35-104); Anion Gap 13 (5-15); BUN 8 mg/dL (4-19); BUN/Creat Ratio 13.5 RATIO (10-20); Bilirubin, Direct 0.57 mg/dL (0.00-0.30); Carbon Dioxide 22.9 mmol/L (21.0-32.0); Chloride 103 mmol/L (98-108); Creatinine, Serum 0.63 mg/dL (0.70-1.20); EST Glomerular Filtration Rate 97 (>60); Globulin 2.7 g/dL (2.2-4.2); Glucose 91 mg/dL (70-99); Protein, Total 7.3 g/dL (5.9-8.4); Sodium Level 139 mmol/L (133-145); Total Bilirubin 1.45 mg/dL (0.00-1.30)
[2024-10-26 15:40] LABS: CRP < 3.00 mg/L (0.0-3.0)
[2024-10-29 23:07] LABS: Immunoglobulin A 194 mg/dL (87-352); Immunoglobulin E 20 IU/mL (6-495); Immunoglobulin G 976 mg/dL (586-1602); Immunoglobulin G, Subclass 1 405 mg/dL (248-810); Immunoglobulin G, Subclass 2 385 mg/dL (130-555); Immunoglobulin G, Subclass 3 48 mg/dL (15-102); Immunoglobulin G, Subclass 4 14 mg/dL (2-96); Immunoglobulin M 68 mg/dL (26-217)
== END | disposition home or self-care (01) ==
LOC: MTLAB 11:24
PROVIDERS: Internal Medicine; PCP Family Medicine; Referring Provider Family Medicine; Visit Provider Family Medicine
DX: K74.3 Primary biliary cirrhosis (principal); K75.4 Autoimmune hepatitis; K75.81 Nonalcoholic steatohepatitis (NASH); D69.6 Thrombocytopenia, unspecified; R79.89 Other specified abnormal findings of blood chemistry
CPT/HCPCS: 36415; 80053; 82248; 82784; 82785; 82787; 85025; 86140

== ENCOUNTER 2024-11-03 10:12 | Outpatient (CLI) | payer MEDICARE, SELFPAY ==
[2024-11-03 12:27] LABS: Absolute Lymphocyte Count 1.35 X10^3/uL (0.83-4.51); Absolute Neutrophil Count 3.6 X10^3/uL (2.0-7.7); Basophil# 0.02 X10^3/uL; Basophil% 0.4 % (0-1); Eosinophil# 0.17 X10^3/uL; Eosinophils% 3.1 % (0-5); Hematocrit 38.9 % (37-47); Hemoglobin 13.3 g/dL (12.0-15.0); Lymphocyte # 1.35 X10^3/ul (0.83-4.51); Lymphocyte % 24.3 % (19-41); Mean Corp Hgb Conc 34.2 g/dL (32-36); Mean Corpuscular Hgb 31.4 pg (27.0-32.0); Mean Platelet Vol. 12.4 fl (6.2-12.0); Monocyte# 0.37 X10^3/uL; Monocyte% 6.7 % (0-10); NRBC Flagged by Analyzer 0 % (0-5); Neutrophil # 3.61 X10^3/uL (2.7-7.7); Platelet Count 122 K/mm3 (150-450); RBC Distribution Width CV 13.5 % (11.6-14.6); RBC Distribution Width SD 45.2 fl (35.1-43.9); Red Blood Count 4.23 M/mm3 (4.2-5.4); White Blood Count 5.6 K/mm3 (4.4-11.0)
[2024-11-03 12:38] LABS: Hemoglobin A1c 5.5 % (<=5.6)
[2024-11-03 13:17] LABS: ALB/GLOB Ratio 1.6 RATIO (0.9-2.4); AST(SGOT) 20 U/L (<=31); Alanine Aminotransfer ALT/SGPT 14 U/L (<=34); Albumin, Serum 4.4 g/dL (3.4-4.8); Alkaline Phosphatase 65 U/L (35-104); Anion Gap 14 (5-15); BUN 7 mg/dL (4-19); BUN/Creat Ratio 10.2 RATIO (10-20); Calcium,Total 9.8 mg/dL (7.6-11.0); Carbon Dioxide 21.3 mmol/L (21.0-32.0); Chloride 105 mmol/L (98-108); Cholesterol 121 mg/dL (<=200); Creatinine, Serum 0.69 mg/dL (0.70-1.20); EST Glomerular Filtration Rate 95 (>60); Globulin 2.7 g/dL (2.2-4.2); Glucose 127 mg/dL (70-99); High Density Lipoprotein 58 mg/dL; Low Density Lipoprotein Calc. 44 mg/dL; Magnesium 1.8 mg/dL (1.5-2.2); Potassium 3.8 mmol/L (3.3-5.1); Protein, Total 7.1 g/dL (5.9-8.4); Sodium Level 141 mmol/L (133-145); Total Bilirubin 1.37 mg/dL (0.00-1.30); Triglycerides 97 mg/dL; Very Low Density Lipoprotein 19 mg/dL (5-40); cholesterol:hdl ratio screen 2.08
[2024-11-03 13:20] LABS: Vitamin D,25 Hydroxy 75.4 ng/mL (30-100)
[2024-11-03 13:45] LABS: Vitamin B12 3685 pg/mL (180-914)
[2024-11-10 11:08] LABS: VITAMIN B6 4.9 ug/L (3.4-65.2)
== END 2024-11-03 23:59 | disposition home or self-care (01) ==
LOC: MFPLAB 10:12
PROVIDERS: PCP Family Medicine; Referring Provider Family Medicine; Visit Provider Family Medicine
DX: I10 Essential (primary) hypertension (principal); R73.02 Impaired glucose tolerance (oral); E55.9 Vitamin D deficiency, unspecified
CPT/HCPCS: 36415; 80053; 80061; 82306; 82607; 83036; 83735; 84207; 84425; 85025

== ENCOUNTER 2024-11-04 09:37 | Outpatient (CLI) | payer MEDICARE, SELFPAY ==
[2024-11-04 09:39] LABS: Bacteria 0 SEEN /hpf (None Seen)
[2024-11-04 10:36] LABS: Color, Urine Yellow (Yellow); Glucose, Dipstick Normal (Normal); Ketone-Dipstick Negative (Negative); Leukocyte Esterase-Dipstick 25 /ul (Negative); Nitrite-Dipstick Negative (Negative); Occult Blood-Urine 10 /ul (Negative); Protein-Dipstick 15 mg/dl (Negative); Specific Gravity, Urine 1.025 (1.002-1.030); Urine Bilirubin Dipstick Negative (Negative); Urine Clarity Clear (Clear); Urine Urobilinogen Normal (Normal)
[2024-11-04 11:01] LABS: Mucous, Urine 1+ /hpf (<or=2+); Red Blood Cells-Urine 0-5 SEEN /hpf (0-5); White Blood Cells 0-5 SEEN /hpf (0-5)
[2024-11-04 11:02] LABS: Calcium Oxalate Crystals Ur 2+ /hpf (<or=2+); Squamous Epithelial Cells - UA 0-5 SEEN /hpf (5-10)
== END 2024-11-04 23:59 | disposition home or self-care (01) ==
LOC: LABSPEC 09:38
PROVIDERS: PCP Family Medicine; Referring Provider Family Medicine; Visit Provider Family Medicine
DX: I10 Essential (primary) hypertension (principal)
CPT/HCPCS: 81001

== ENCOUNTER → 2024-11-25 | Outpatient (CLI) | payer MEDICARE, SELFPAY ==
--- NOTE | 2024-11-25 10:44 | RAD_ITS ---
PROCEDURE: KNEE 4 OR MORE VIEWS 11/25/2024 REASON FOR EXAM: PAIN TECHNIQUE: KNEE 4 OR MORE VIEWS COMPARISON: None. FINDINGS: No evidence acute fracture or dislocation. No knee joint effusion. Mild degenerative changes of the knee. RAD/Knee 4 or More Views IMPRESSION: Mild osteoarthrosis. Reading Location: [place] [address]
--- NOTE | 2024-11-25 10:44 | RAD_ITS ---
PROCEDURE: KNEE 4 OR MORE VIEWS 11/25/2024 REASON FOR EXAM: PAIN TECHNIQUE: KNEE 4 OR MORE VIEWS COMPARISON: None. FINDINGS: No evidence acute fracture or dislocation. No knee joint effusion. Mild degenerative changes of the knee. RAD/Knee 4 or More Views IMPRESSION: Mild osteoarthrosis. Reading Location: [place] [address]
--- NOTE | 2024-11-25 10:45 | RAD_ITS ---
PROCEDURE: KNEE 4 OR MORE VIEWS 11/25/2024 REASON FOR EXAM: PAIN TECHNIQUE: KNEE 4 OR MORE VIEWS COMPARISON: None. FINDINGS: No evidence acute fracture or dislocation. No knee joint effusion. Mild degenerative changes of the knee. RAD/Knee 4 or More Views IMPRESSION: Mild osteoarthrosis. Reading Location: [place] [address]
--- NOTE | 2024-11-25 10:45 | RAD_ITS ---
PROCEDURE: KNEE 4 OR MORE VIEWS 11/25/2024 REASON FOR EXAM: PAIN TECHNIQUE: KNEE 4 OR MORE VIEWS COMPARISON: None. FINDINGS: No evidence acute fracture or dislocation. No knee joint effusion. Mild degenerative changes of the knee. RAD/Knee 4 or More Views IMPRESSION: Mild osteoarthrosis. Reading Location: [place] [address]
== END | disposition home or self-care (01) ==
LOC: MTRAD 10:43
PROVIDERS: PCP Family Medicine; Referring Provider Internal Medicine Rheumatology; Visit Provider Internal Medicine Rheumatology
DX: L40.59 Other psoriatic arthropathy (principal); Z79.899 Other long term (current) drug therapy; L40.8 Other psoriasis; M15.9 Polyosteoarthritis, unspecified
CPT/HCPCS: 73564

== ENCOUNTER → 2025-02-02 | Outpatient (CLI) | payer MEDICARE, SELFPAY ==
[2025-02-02 13:29] LABS: Mucous, Urine 0 SEEN /hpf (<or=2+)
[2025-02-02 16:41] LABS: Color, Urine Yellow (Yellow); Glucose, Dipstick Normal (Normal); Ketone-Dipstick Negative (Negative); Leukocyte Esterase-Dipstick 500 /ul (Negative); Nitrite-Dipstick Negative (Negative); Occult Blood-Urine 25 /ul (Negative); Protein-Dipstick 15 mg/dl (Negative); Specific Gravity, Urine 1.010 (1.002-1.030); Urine Bilirubin Dipstick Negative (Negative)
[2025-02-02 21:09] LABS: Red Blood Cells-Urine 0-5 SEEN /hpf (0-5)
[2025-02-02 21:10] LABS: Squamous Epithelial Cells - UA 0-5 SEEN /hpf (5-10)
== END | disposition home or self-care (01) ==
LOC: MFPLAB 13:07
PROVIDERS: PCP Family Medicine; Referring Provider Nurse Practitioner Family; Visit Provider Nurse Practitioner Family
DX: N39.0 Urinary tract infection, site not specified (principal)
CPT/HCPCS: 81001; 87077; 87086; 87088; 87186

== ENCOUNTER → 2025-02-15 | Outpatient (CLI) | payer MEDICARE, SELFPAY ==
[2025-02-15 14:08] LABS: Hematocrit 32.8 % (37-47); Hemoglobin 11.6 g/dL (12.0-15.0); Immature Granulocytes Count 0.020 X10^3/uL (0.0-0.0); Mean Corp Hgb Conc 35.4 g/dL (32-36); Mean Corpuscular Volume 96.5 fL (81-99); Mean Platelet Vol. 11.7 fl (6.2-12.0); NRBC Flagged by Analyzer 0 % (0-5); POSITIVE COUNT YES; Platelet Count 93 K/mm3 (150-450); RBC Distribution Width CV 14.0 % (11.6-14.6); RBC Distribution Width SD 49.0 fl (35.1-43.9); Red Blood Count 3.40 M/mm3 (4.2-5.4); White Blood Count 4.6 K/mm3 (4.4-11.0)
[2025-02-15 14:29] LABS: Differential Indicated SCAN CRITERIA MET
[2025-02-15 14:51] LABS: AST(SGOT) 21 U/L (<=31); Alanine Aminotransfer ALT/SGPT 13 U/L (<=34); Albumin, Serum 4.2 g/dL (3.4-4.8); Alkaline Phosphatase 71 U/L (35-104); Anion Gap 11 (5-15); BUN 7 mg/dL (4-19); BUN/Creat Ratio 9.5 RATIO (10-20); Calcium,Total 9.3 mg/dL (7.6-11.0); Carbon Dioxide 22.5 mmol/L (21.0-32.0); Chloride 106 mmol/L (98-108); Globulin 2.5 g/dL (2.2-4.2); Glucose 101 mg/dL (70-99); Potassium 3.6 mmol/L (3.3-5.1)
[2025-02-15 22:06] LABS: Differential Comment SCANNED
== END | disposition home or self-care (01) ==
LOC: LAB 13:42
PROVIDERS: PCP Family Medicine; Referring Provider Internal Medicine Rheumatology; Visit Provider Internal Medicine Rheumatology
DX: L40.59 Other psoriatic arthropathy (principal); Z79.899 Other long term (current) drug therapy; L40.8 Other psoriasis
CPT/HCPCS: 36415; 80053; 85025

== ENCOUNTER → 2025-03-01 | Outpatient (CLI) | payer MEDICARE, SELFPAY ==
[2025-03-01 10:14] LABS: Red Blood Cells-Urine 0 SEEN /hpf (0-5)
[2025-03-01 12:27] LABS: Hematocrit 35.4 % (37-47); Hemoglobin 12.5 g/dL (12.0-15.0); Immature Granulocytes Count 0.020 X10^3/uL (0.0-0.0); Mean Corp Hgb Conc 35.3 g/dL (32-36); Mean Corpuscular Volume 96.5 fL (81-99); Mean Platelet Vol. 12.4 fl (6.2-12.0); NRBC Flagged by Analyzer 0 % (0-5); Platelet Count 105 K/mm3 (150-450); RBC Distribution Width CV 13.0 % (11.6-14.6); RBC Distribution Width SD 46.0 fl (35.1-43.9); Red Blood Count 3.67 M/mm3 (4.2-5.4); White Blood Count 3.9 K/mm3 (4.4-11.0)
[2025-03-01 12:37] LABS: Color, Urine Yellow (Yellow); Glucose, Dipstick Normal (Normal); Ketone-Dipstick Negative (Negative); Leukocyte Esterase-Dipstick Negative /ul (Negative); Nitrite-Dipstick Negative (Negative); Occult Blood-Urine Negative /ul (Negative); Protein-Dipstick Negative (Negative); Specific Gravity, Urine 1.015 (1.002-1.030); Urine Bilirubin Dipstick Negative (Negative)
[2025-03-01 12:53] LABS: Mucous, Urine 1+ /hpf (<or=2+); Squamous Epithelial Cells - UA 0-5 SEEN /hpf (5-10)
[2025-03-01 13:24] LABS: AST(SGOT) 24 U/L (<=31); Alanine Aminotransfer ALT/SGPT 17 U/L (<=34); Albumin, Serum 4.3 g/dL (3.4-4.8); Alkaline Phosphatase 66 U/L (35-104); Anion Gap 12 (5-15); BUN 9 mg/dL (4-19); BUN/Creat Ratio 14.3 RATIO (10-20); Calcium,Total 9.7 mg/dL (7.6-11.0); Carbon Dioxide 21.8 mmol/L (21.0-32.0); Chloride 104 mmol/L (98-108); Cholesterol 134 mg/dL (<=200); Globulin 2.7 g/dL (2.2-4.2); Glucose 96 mg/dL (70-99); Low Density Lipoprotein Calc. 57 mg/dL; Potassium 4.1 mmol/L (3.3-5.1); Triglycerides 89 mg/dL; Very Low Density Lipoprotein 18 mg/dL (5-40); Vitamin B12 587 pg/mL (180-914); Vitamin D,25 Hydroxy 80.3 ng/mL (30-100); cholesterol:hdl ratio screen 2.27
[2025-03-05 08:09] LABS: VITAMIN B6 95.2 ug/L (3.4-65.2); Vitamin B1, Thiamine 90.4 nmol/L (66.5-200.0)
== END | disposition home or self-care (01) ==
PROVIDERS: PCP Family Medicine; Visit Provider Family Medicine
DX: R73.02 Impaired glucose tolerance (oral) (principal); E53.9 Vitamin B deficiency, unspecified; E55.9 Vitamin D deficiency, unspecified; I10 Essential (primary) hypertension
CPT/HCPCS: 36415; 80053; 80061; 81001; 82306; 82607; 83036; 84207; 84425; 85025